=== PATIENT | male | born 1965 | race Caucasian/White ===

== ENCOUNTER → 2021-02-13 | Outpatient (CLI) | payer OTHER ==
[~2021-02-13] MED LIST: ASPIRIN E.C. 8181 MG PO; CORDARONE200 MG/TAB PO; INVANZ INJ1 G/VIAL IV; K-TAB10 PO; KLOR-CON M1010 MEQ PO; LASIX 40MG TABL40 MG PO; LIPITOR 10MG10 MG PO; LIPITOR 40MG TA40 MG PO; NATURAL MAGNES200 MG PO; NEURONTIN100 MG/CAP PO; NEXIUM 40MG40 MG PO; PRILOSEC 20MG20 MG PO; PRINCIPEN500 MG PO; PRINIVIL40 MG PO; PROBIOTIC ACID1 EAC3 PO; SODIUM BICARBO650 MG PO; TOPROL XL 25MG25 MG PO; ZESTRIL2.5 MG PO; ZESTRIL40 MG PO; ZYRTEC 10MG10 MG PO
== END ==
LOC: COL.RAD 09:13
DX: M79.89 Other specified soft tissue disorders (principal)

== ENCOUNTER 2021-03-07 14:36 | Inpatient (IN) | payer OTHER ==
[~2021-03-07] VITALS: Ht 170.2 cm; Wt 96.8 kg
[~2021-03-07 14:36] MED LIST changes: -ASPIRIN E.C. 8181 MG PO; -CORDARONE200 MG/TAB PO; -INVANZ INJ1 G/VIAL IV; -KLOR-CON M1010 MEQ PO; -LIPITOR 40MG TA40 MG PO; -NEURONTIN100 MG/CAP PO; -NEXIUM 40MG40 MG PO; -PRILOSEC 20MG20 MG PO; -PRINCIPEN500 MG PO; -PRINIVIL40 MG PO; -PROBIOTIC ACID1 EAC3 PO; -SODIUM BICARBO650 MG PO; -TOPROL XL 25MG25 MG PO; -ZESTRIL40 MG PO; -ZYRTEC 10MG10 MG PO
[2021-04-07 09:42] LABS: MEAN CELL VOLUME 98 fl (80.0-100.0); MEAN CORPUSCULAR HGB CONC 34 g/dl (33.0-37.0); PLATELET COUNT 194 K/mm3 (130-400); RED BLOOD COUNT 2.95 M/mm3 (4.20-5.60); REDCELL DISTRIBUTION WIDTH-CV 15.4 % (11.5-14.5)
[2021-04-07 09:52] LABS: ALBUMIN 4.3 gm/dL (3.5-5.0); BILIRUBIN,TOTAL 0.3 mg/dL (0.0-1.0); CALCIUM 9.6 mg/dL (8.4-10.2); CREATININE, serum 0.85 (0.66-1.25); TOTAL PROTEIN 7.2 gm/dL (6.4-8.2)
[2021-04-07 10:04] LABS: HEMATOCRIT 28.9 % (42.0-52.0); HEMOGLOBIN 9.9 g/dl (13.5-18.0); MEAN CORPUSCULAR HEMOGLOBIN 34 pg (27.0-31.0)
[2021-04-07 10:14] LABS: BAND 1 % (0-10); EOSINOPHIL 4 % (0-4); LYMPHOCYTE 31 % (20.0-51.0); METAMYELOCYTE 1 % (0-0); NEUTROPHILS 55 % (42.0-75.2); PLATELET ESTIMATE NORMAL (NORMAL)
[2021-04-08] VITALS (231 sets, daily range): BP systolic 111–137; BP diastolic 65–89; PULSE 76–101; TEMP 96.9–98.9; O2SAT 86–100
--- NOTE | 2021-04-08 06:00 | NUR ---
Patient ambulate to bay 7 with steady gait and tolerated activity well. Vital signs obtained. Heart regular. Bowel sounds audible. Lungs audible wheeze on inhalation. IV started in left hand with 2 attempts. brought to bedside to be with patient until surgery. Lab came collected samples for a type and cross when IV was started.
[2021-04-08] MEDS ORDERED: PRILOSEC 20MG20 MG PO ×2 (06:55)
[2021-04-08] MEDS ORDERED: ZYRTEC 10MG10 MG PO (06:57)
[2021-04-08] MEDS ORDERED: KLOR-CON M1010 MEQ PO ×2 (07:00)
[2021-04-08 15:00] LABS: MEAN CORPUSCULAR HGB CONC 33 g/dl (33.0-37.0); MEAN PLATELET VOLUME 10.2 fl (7.4-10.4); PLATELET COUNT 201 K/mm3 (130-400); RED BLOOD COUNT 2.57 M/mm3 (4.20-5.60); REDCELL DISTRIBUTION WIDTH-CV 15.8 % (11.5-14.5)
[2021-04-08 15:05] LABS: HEMATOCRIT 26.8 % (42.0-52.0); HEMOGLOBIN 8.8 g/dl (13.5-18.0); MEAN CELL VOLUME 104 fl (80.0-100.0); MEAN CORPUSCULAR HEMOGLOBIN 34 pg (27.0-31.0)
--- NOTE | 2021-04-08 15:18 | NUR ---
RECEIVED REPORT FROM GOKLU FRANCIS IN OR. AWAITING ARRIVAL OF PT TO ICU 4.
[2021-04-08 15:20] LABS: CALCIUM 8.2 mg/dL (8.4-10.2); CREATININE, serum 1.07 (0.66-1.25); POTASSIUM 4.6 mmol/L (3.4-5.0)
--- NOTE | 2021-04-08 15:41 | NUR ---
PT ARRIVES TO ICU 4 VIA BED. ASSISTED TO ICU BED. PLACED ON BEDSIDE CONTINUOUS MONITOR. PER REPORT, PT MID ABD DRESSING SHADOWING WAS NOTED BY PHYSCIAN PRIOR TO TRANSFER TO ICU. WILL MONITOR CLOSELY. VSS. CALL LIGHT WITHIN REACH. PT ON 2L VIA NC. AND SON BROUGHT TO BEDSIDE.
[2021-04-08 15:43] LABS: BAND 9 % (0-10); LYMPHOCYTE 3 % (20.0-51.0); NEUTROPHILS 82 % (42.0-75.2)
[2021-04-08 15:44] LABS: ANISOCYTOSIS 1+; HYPOCHROMIA 1+; PLATELET ESTIMATE NORMAL (NORMAL)
--- NOTE | 2021-04-08 21:50 | NUR ---
Assessment complete and charted. Urostomy flushed with 3ml as ordered. Reports mild pain. Given scheduled tylenol. Patient dressings to ABD have drainage present. No changes from previous assessment on drainage. MEET drain emptied. Denies other needs. Call light in reach.
[2021-04-09] VITALS (446 sets, daily range): BP systolic 115–149; BP diastolic 73–96; PULSE 90–135; TEMP 97.6–98.7; O2SAT 90–100
--- NOTE | 2021-04-09 00:50 | NUR ---
Assessment complete and charted. Denies needs at this time. Call light in reach.
--- NOTE | 2021-04-09 04:48 | NUR ---
Assessment complete and charted. Denies needs. Call light in reach.
[2021-04-09 05:19] LABS: BASO % 0.1 % (0.0-2.0); GRAN # 12.1 (1.4-6.5); LYMPH # 1.1 (1.2-3.4); LYMPH % 7.4 % (20.0-51.0); MEAN CELL VOLUME 102 fl (80.0-100.0); MEAN CORPUSCULAR HGB CONC 33 g/dl (33.0-37.0); MEAN PLATELET VOLUME 10.2 fl (7.4-10.4); MONO # 1.3 (0.1-0.6); MONO % 8.9 % (1.7-9.3); PLATELET COUNT 172 K/mm3 (130-400); RED BLOOD COUNT 2.25 M/mm3 (4.20-5.60); REDCELL DISTRIBUTION WIDTH-CV 15.7 % (11.5-14.5)
[2021-04-09 05:26] LABS: HEMATOCRIT 22.9 % (42.0-52.0); HEMOGLOBIN 7.5 g/dl (13.5-18.0); MEAN CORPUSCULAR HEMOGLOBIN 33 pg (27.0-31.0)
[2021-04-09 05:27] LABS: CALCIUM 8.7 mg/dL (8.4-10.2); CREATININE, serum 0.98 (0.66-1.25); POTASSIUM 4.7 mmol/L (3.4-5.0)
[2021-04-09 05:37] LABS: MAGNESIUM 1.4 mg/dL (1.6-2.3)
--- NOTE | 2021-04-09 06:44 | NUR ---
Patient had uneventful night. X1 unit of PRBC started this AM per verbal order from Dr. Brown. Resting in bed this AM. Call light in reach.
--- NOTE | 2021-04-09 07:00 | NUR ---
RECEIVED REPORT FROM GOKUL ROONEY. PT SITTING UP IN BED ON RA. VSS. CALL LIGHT WITHIN REACH. FC PATENT AND DRAINING TO GRAVITY. NOTED PRBC INFUSING.
--- NOTE | 2021-04-09 07:13 | NUR ---
Report given to Jalil HODGSON
--- NOTE | 2021-04-09 09:27 | NUR ---
MIO met with the patient to discuss discharge plan. The patient lives in [place] with his , Heide (ph#[phone]). He reports independence with ADLs and does not have any DME. The patient's PCP is Dr. Jony Medrano and he receives his medications from [facility]. He reports no difficulties obtaining his meds. The patient does not have a DPOA-HC, but he was interested in obtaining a form. MIO provided. The patient plans to return home with his upon discharge. No additional needs at this time. *Discharge plan: home with *
--- NOTE | 2021-04-09 11:39 | NUR ---
First visit from the plating engineer. Chaplain aceves for patient outside their door.
[2021-04-09 12:11] LABS: HEMATOCRIT 26.9 % (42.0-52.0); HEMOGLOBIN 9.1 g/dl (13.5-18.0)
--- NOTE | 2021-04-09 16:21 | NUR ---
PT STATES HE FEELS LIKE HE IS GOING TO THROW UP. COOL WASH CLOTH PROVIDED AND AIR ON. PT ASSISTED TO EDGE OF CHAIR TO LEAN OVER TRASH CAN WHILE HE DRY HEAVES. ASSISTED WITH PILLOW TO HOLD PRESSURE OVER HIS BELLY WHILE HE DOES. HR NOTED HITS 132. DR GIBSON NOTIFIED OF INCIDENT. STATES CAN GIVE PHENERGAN. SOON RN WALKS BACK IN THE ROOM, PT STATES HE FEELS BETTER AND HAD PASSED GAS AND BURBED. PROVIDER STATES CAN GIVE HIM THE PHENERGAN X1 DOSE LATER IF HE NEEDS IT.
--- NOTE | 2021-04-09 17:32 | NUR ---
PER MT, PT'S HR IS NOW AFIB 130-150. UPON ENTERING ROOM, PT STATES HE DOES NOT EVEN NOTICE. BP 169/96. NOTIFIED DR CALDERON. PROVIDER STATES TO CONSULT DR ANTHONY.
--- NOTE | 2021-04-09 17:40 | NUR ---
NOTIFY DR ANTHONY OF AFIB INCIDENT AND BP. NEW ORDERS RECEIEVED. SEE MAR. SEE IV GTT TITRATIONS.
--- NOTE | 2021-04-09 18:15 | NUR ---
UPDATED DR GIBSON OF WHAT DR ANTHONY ORDERED AND ASKED IF PT CAN BE IMCU STTAUS R/T NOW ON CARDIZEM GTT, RECEIVED NEW ORDER.
--- NOTE | 2021-04-09 19:20 | NUR ---
Patient coverted to sinus tach at this time. 90-100s
--- NOTE | 2021-04-09 20:00 | NUR ---
Assessment complete and charted. Denies needs. MEET drain emptied. Call light in reach.
[2021-04-10] VITALS (356 sets, daily range): BP systolic 108–131; BP diastolic 58–81; PULSE 83–104; TEMP 97.7–98.9; O2SAT 94–100
--- NOTE | 2021-04-10 02:11 | NUR ---
Patient provided with PRN tramadol for 5/10 ABD pain at this time. Denies other needs. Call light in reach.
--- NOTE | 2021-04-10 05:50 | NUR ---
Patient had uneventful night. Resting in bed this AM. Call light in reach.
--- NOTE | 2021-04-10 07:20 | NUR ---
Dr. Flores at bedside to see patient. Irrigated albarran catheter and lakisha-bladder. Lap sites assessed. Aware of drainage from midline incision. Will continue to monitor.
--- NOTE | 2021-04-10 07:33 | NUR ---
Report given to GOKUL Rucker
[2021-04-10 07:48] LABS: MEAN CELL VOLUME 100 fl (80.0-100.0); MEAN CORPUSCULAR HGB CONC 33 g/dl (33.0-37.0); MEAN PLATELET VOLUME 10.5 fl (7.4-10.4); PLATELET COUNT 151 K/mm3 (130-400); RED BLOOD COUNT 2.32 M/mm3 (4.20-5.60); REDCELL DISTRIBUTION WIDTH-CV 16.7 % (11.5-14.5)
[2021-04-10 07:49] LABS: HEMATOCRIT 23.1 % (42.0-52.0); HEMOGLOBIN 7.6 g/dl (13.5-18.0); MEAN CORPUSCULAR HEMOGLOBIN 33 pg (27.0-31.0)
[2021-04-10 07:59] LABS: CALCIUM 8.7 mg/dL (8.4-10.2); CREATININE, serum 0.97 (0.66-1.25); POTASSIUM 3.9 mmol/L (3.4-5.0)
[2021-04-10 08:16] LABS: MAGNESIUM 1.5 mg/dL (1.6-2.3)
--- NOTE | 2021-04-10 14:01 | NUR ---
Notified Kelsie from Dr. Sahu office that patient had gone back into [facility]. Was running 120's but currently 80's-90's. Received his first dose of Sotalol. No new orders received.
--- NOTE | 2021-04-10 15:00 | NUR ---
Transfered from unit to surgical floor via wheelchair. Patient alert and oriented and in stable condition upon transfer. Notified nursing staff that patient had arrived into his room in 329. also updated and notified of room change.
--- NOTE | 2021-04-10 16:00 | NUR ---
Pt recently arrived to the floor from ICU. He is alert and oriented with moderate pain complaints. He states it is tolerable and denies wanting any additional pain medication other than the tylenol. Small amount of drainage on his abd dressing. Per report this has been normal for him. Dressing was recently changed by ICU. Escobedo catheter and suprapubic both to dependent drainage. Minimal output in the bags at this time. SCDs on bilaterally. IV with fluids infusing to his left hand.
[2021-04-10] MEDS ORDERED: ZESTRIL40 MG PO (17:08)
--- NOTE | 2021-04-10 18:56 | NUR ---
Drainage noted on the abd dressing/suprapubic. Dressing changed and new ostomy appliance applied. Wafer is placed at the abd fold and it is hard to get a good seal. Pt having some pain but reports that he wants to wait until bedtime to take anything for it.
--- NOTE | 2021-04-11 00:05 | NUR ---
PATIENT RESTING IN BED. TYLENOL AND TRAMADOL GIVEN FOR PAIN WITH GOOD EFFECT. DUO CAR FLUSH. MEET DRAIN INTACT. MID ABDOMINAL INCISION WITH JAMEEL INTACT WITH MODERATE AMOUNT OF DRAINAGE. NEW DRESSING APPLIED. PATIENT AMBULATES TO BR WITH STEADY GAIT. BM X2. WILL CONTINUE TO MONITOR.
[2021-04-11 04:42] VITALS: BP 103/70; PULSE 67; TEMP 98.5
[2021-04-11 06:47] LABS: CALCIUM 8.6 mg/dL (8.4-10.2); CREATININE, serum 0.84 (0.66-1.25); MAGNESIUM 1.6 mg/dL (1.6-2.3); POTASSIUM 3.7 mmol/L (3.4-5.0)
[2021-04-11 06:54] LABS: BASO % 0.2 % (0.0-2.0); EOS # 0.2 (0.0-0.7); EOS % 1.2 % (0-4.0); GRAN # 9.3 (1.4-6.5); GRAN % 77.2 % (42.2-75.2); LYMPH # 1.3 (1.2-3.4); LYMPH % 10.5 % (20.0-51.0); MEAN CELL VOLUME 100 fl (80.0-100.0); MEAN CORPUSCULAR HGB CONC 33 g/dl (33.0-37.0); MEAN PLATELET VOLUME 10.9 fl (7.4-10.4); MONO # 1.2 (0.1-0.6); MONO % 10.2 % (1.7-9.3); PLATELET COUNT 174 K/mm3 (130-400); RED BLOOD COUNT 2.35 M/mm3 (4.20-5.60)
[2021-04-11 06:56] LABS: HEMATOCRIT 23.5 % (42.0-52.0); HEMOGLOBIN 7.7 g/dl (13.5-18.0); MEAN CORPUSCULAR HEMOGLOBIN 33 pg (27.0-31.0)
[2021-04-11 08:25] VITALS: BP 127/76; PULSE 86; TEMP 98.4
--- NOTE | 2021-04-11 10:24 | NUR ---
Several visit attempts; Patient sleeping, Marketing Programs Specialist left prayer card with Marketing Programs Specialist's name wishing him God's blessings and the availability of spiritual care at our hospital.
--- NOTE | 2021-04-11 10:30 | NUR ---
The patient was tranferred to surgical floor from the ICU. Copyist met with the patient to revisit the discharge plan. The patient is independent and plans to return home with his , Heide. *Discharge disposition: Home with spouse, Heide.
[2021-04-11 11:39] LABS: CLOSTRIDIUM DIFF A/B NEG; CLOSTRIDIUM DIFF A/B INTERP No C.diff present
[2021-04-11 11:58] VITALS: BP 123/66; PULSE 79; TEMP 98
[2021-04-11 17:39] VITALS: BP 127/73; PULSE 87; TEMP 97.8
--- NOTE | 2021-04-11 17:58 | NUR ---
Patient has done well today. rounded this am and plan of care was reviewed. Patient has been encouraged to slowly increase po intake, he has had a few bites of toast, small amount of chicken noodle soup & an ensure shake. He has denied nausea today, but no appetite. Abdomen is distended, but soft. He reports passing flatus. Iv to Int. Patient has been up and down to the bathroom today. Cdiff negative. stool remains loose. Seal around suprapubic cath & stent has been hard to maintain today. New urostomy appliance changed muliple times, patient cleaned up as needed. Extensive albarran care provided today. He is getting scrotal edema & brusing. Midline incision irina intact & lap site irina intact. Midline gauze dressing changed as needed today. Patient ureteral stent were flushed with 3mls per orders & suprapubic & albarran flushed as ordered today as well. MEET drain to compression, output has decreased. Scds used throughout day & patient also had his lovenox shot as ordered. Tele has been NSR today. Ekg stable to give Sotolol today. Eras protocol followed. Tyelnol & neurotin given. Ultram for break through pain as well as ice pack to help as well. His visited this afternoon. Will report off to nightnurse
--- NOTE | 2021-04-11 19:01 | NUR ---
Update called to . Made him aware of increased distal midline incision drainage. Blood noted. He complains of being bloated. Denies nausea. Abdomen does appear more distended. Lovenox held per orders. Am labs are already ordered. Gauze to midline. Philippe to compression. aware of very minimal output from albarran from penis & unable to return fluid flushed. Suprapubic output adequate, but unable to have strict I&O due to leaking. Donna to resume cares this evning.
[2021-04-11 20:27] VITALS: BP 138/69; PULSE 94; TEMP 98.1
--- NOTE | 2021-04-11 23:35 | NUR ---
ABD DRSG INTACT WITH SEROUS DRAINAGE BUT NOT SATURATED. WILL CONTINUE TO MONITOR.
[2021-04-12] VITALS (17 sets, daily range): BP systolic 106–144; BP diastolic 65–82; PULSE 66–82; TEMP 97.5–98.6
--- NOTE | 2021-04-12 01:37 | NUR ---
ABD DRSG INTACT WITH SEROUS DRG BUT NOT SATURATED YET. WILL CONTINUE TO MONITOR. HAD 25CC FROM S/P CATH. VERY LITTLE FROM FLOEY. OFFERED ICE BAG FOR SWOLLEN SCROTUM- DECLINED AT THIS TIME.
--- NOTE | 2021-04-12 02:45 | NUR ---
CHANGED ABD PRASANNAG. MOD AMT SEROUS SANGUINOUS LEAKAGE AT DISTAL END.
--- NOTE | 2021-04-12 06:31 | NUR ---
NIC ADAMS HAS SEROUS SANGUINOUS DRG. NO LEAKAGE. WILL CONTINUE TO MONITOR
[2021-04-12 07:15] LABS: BASO % 0.3 % (0.0-2.0); EOS # 0.2 (0.0-0.7); EOS % 1.7 % (0-4.0); GRAN # 7.4 (1.4-6.5); GRAN % 70.8 % (42.2-75.2); LYMPH # 1.4 (1.2-3.4); LYMPH % 13.7 % (20.0-51.0); MEAN CELL VOLUME 100 fl (80.0-100.0); MEAN CORPUSCULAR HGB CONC 33 g/dl (33.0-37.0); MEAN PLATELET VOLUME 10.7 fl (7.4-10.4); MONO # 1.3 (0.1-0.6); MONO % 12.5 % (1.7-9.3); PLATELET COUNT 198 K/mm3 (130-400); RED BLOOD COUNT 2.39 M/mm3 (4.20-5.60); REDCELL DISTRIBUTION WIDTH-CV 15.2 % (11.5-14.5)
[2021-04-12 07:17] LABS: HEMATOCRIT 23.8 % (42.0-52.0); HEMOGLOBIN 7.8 g/dl (13.5-18.0); MEAN CORPUSCULAR HEMOGLOBIN 33 pg (27.0-31.0)
[2021-04-12 07:23] LABS: CALCIUM 8.7 mg/dL (8.4-10.2); CREATININE, serum 0.92 (0.66-1.25); MAGNESIUM 1.7 mg/dL (1.6-2.3); POTASSIUM 3.2 mmol/L (3.4-5.0)
--- NOTE | 2021-04-12 08:45 | NUR ---
Patient up to the bathroom this am. Spoke to about K+ Level of 3.2-Inially ordered IV K+patient was unable to tolorate in Iv. Po orders obtained. Ultram for pain. Patient did want to try Egg for breakfast, ordered. him one. Patient midline dressing saturated. New dressing applied. Scds. Int. Will monitor.
--- NOTE | 2021-04-12 10:30 | NUR ---
rounded. Patient seen & plan of care reviewed. Stat Ct scan ordered. Patient ureteral stents were removed by . Was painful for patient. Doctor Ofe also flushed his foleys. Midline continues to drain. Redressed with Gauze & paper tape. Patient skin starting to become irritared. Patient made NPO for potential surgery. Suprapubic albarran to bag & secured with stat lock. Philippe drain to comression. Albarran from penis with minimal output.
--- NOTE | 2021-04-12 11:30 | NUR ---
rounded & plan of care reviewed. Patient LR to gravity. Consent obtained. Patient taken down to Pacu for waiting Beena Pacu nurse to monitor patient. Patient is a little anxious/nervous.
--- NOTE | 2021-04-12 14:00 | NUR ---
Patient received post op from [facility]. Patient post op vitals stable. Abdominal dressing intact with abdominal binder on. Philippe drain remains to compression. Pinned to gown. Escobedo & suprapubic to DD. Ice water provided. Instructed patient to take slowly. Will closely monitor.
--- NOTE | 2021-04-12 15:30 | NUR ---
Patient unit of blood started per orders. Blood protocol followed. Verified with Meghan Gagnon. Patient vitals have been stable post op. Patient reports overall feeling much better.
--- NOTE | 2021-04-12 19:05 | NUR ---
Patient blood transfusion completed. He tolerated well. Vitals remain stable. Patient flushed his own albarran caths with 30mls. Mucus irrigated. Philippe drain to compression, serous output. Abdominal binder on above his suprapubic cath. Midline dressing remains clean dry & intact. Iv to Int. Patient reports overall feeling much better & ready to rest tonight. Report to media buyer nurse
--- NOTE | 2021-04-12 19:44 | NUR ---
PT NOT AGREEABLE TO MONOSTAT VAG CREAM. NOTIFIED ZAIRA SMITH. NEW ORDER.
--- NOTE | 2021-04-12 20:00 | NUR ---
PT UP TO BR WITH SBA. HAVING LOOSE LIQ STOOL LIGHT BROWN SEVERAL TIMES. SUPRAPUBIC CATHETER DRAINING YELLOW URINE WITH BENITEZ EXUDATE IN TUBING. CAR HAS SMALL AMT OF YELLOW WITH PINK TINGED. SEE I&O. MEET DRAINING PINK/YELLOW RETURN. NIC MIMSGS CDI. ABD BINDER IN PLACE. SEE MAR FOR PAIN MED GIVEN.
[2021-04-13 00:52] VITALS: BP 99/70; PULSE 67; TEMP 97.4
--- NOTE | 2021-04-13 03:21 | NUR ---
PT SLEEPING SOUNDLY WITH CPAP ON.
[2021-04-13 03:41] VITALS: BP 101/74; PULSE 69; TEMP 97.6
--- NOTE | 2021-04-13 04:11 | NUR ---
UP TO BR .HAD ANOTHER LOOSE STOOL/
[2021-04-13 06:28] LABS: MEAN CELL VOLUME 96 fl (80.0-100.0); MEAN CORPUSCULAR HGB CONC 33 g/dl (33.0-37.0); MEAN PLATELET VOLUME 10.1 fl (7.4-10.4); PLATELET COUNT 201 K/mm3 (130-400); RED BLOOD COUNT 2.56 M/mm3 (4.20-5.60); REDCELL DISTRIBUTION WIDTH-CV 17.2 % (11.5-14.5)
[2021-04-13 06:36] LABS: CALCIUM 8.7 mg/dL (8.4-10.2); CREATININE, serum 1.36 (0.66-1.25); MAGNESIUM 1.7 mg/dL (1.6-2.3); POTASSIUM 3.7 mmol/L (3.4-5.0)
[2021-04-13 06:38] LABS: HEMATOCRIT 24.6 % (42.0-52.0); HEMOGLOBIN 8.2 g/dl (13.5-18.0); MEAN CORPUSCULAR HEMOGLOBIN 32 pg (27.0-31.0)
[2021-04-13 07:28] LABS: ANISOCYTOSIS 1+; BAND 10 % (0-10); LYMPHOCYTE 3 % (20.0-51.0); NEUTROPHILS 81 % (42.0-75.2); PLATELET ESTIMATE NORMAL (NORMAL)
--- NOTE | 2021-04-13 08:31 | NUR ---
Pt overall doing well. He is hoping to get to advance his diet today as he reports feeling hungry. Dressings are CDI at this time. Escobedo and suprapubic to dependent drainage. MEET to bulb suction. Did get him some chicken broth and red jello. No other needs verbalized, will continue to monitor
[2021-04-13 08:50] VITALS: BP 116/66; PULSE 74; TEMP 98.4
--- NOTE | 2021-04-13 12:00 | NUR ---
Dr Flores in recently. New orders wrote. Pt did flush both catheter earlier and did well with no prompting. Lunch ordered for him at this time. He is having loose stool.
[2021-04-13 12:38] VITALS: BP 109/52; PULSE 86; TEMP 98.3
--- NOTE | 2021-04-13 16:00 | NUR ---
Pt ate lunch but reports that he feels as if he ate too much too fast. Pt reports his stomach feels tight. Bowel sounds are active. Pt stated that he does pass gas when he sits on the toilet. Dressing removed from abd. Incisions all well approximated with irina intact. Called MEET creatinine results to Dr Flores, order to remove MEET. Meet removed at this time. Gauze applied to drain site, airstrip applied to midline and drain sponge around suprapubic. PRN pain medication given
[2021-04-13 17:27] VITALS: BP 112/55; PULSE 106; TEMP 100.4
--- NOTE | 2021-04-13 18:01 | NUR ---
Pt has been up walking in the halls. Tolerated well with no increase in pain.
--- NOTE | 2021-04-13 19:30 | NUR ---
UP AMB IN [place]. TOLERATED WELL. PAIN LEVEL 3/10.
[2021-04-13 20:15] VITALS: BP 90/50; PULSE 86; TEMP 98.3
--- NOTE | 2021-04-13 21:00 | NUR ---
CHANGE OLD MEET SITE D/T SEROUS SANG DRG WITH GAUZE. PT AMB TO BR INDEPENDENTLY. PAIN CONTROLLED AT THIS TIME.
[2021-04-14] VITALS (10 sets, daily range): BP systolic 90–120; BP diastolic 51–63; PULSE 81–134; TEMP 97.7–101.2
--- NOTE | 2021-04-14 03:40 | NUR ---
TELE NOTIFIED THIS NURSE REGARDING HR INCREASED TO 140'S SUSTAINED. EKG ORDERED. PT ASYMPTOMATIC. HAD BEEN SLEEPING WITH CPAP.
--- NOTE | 2021-04-14 04:15 | NUR ---
NOTIFIED DR SPAULDING REGARDING EKG CHANGE TO AFIB HR 140'S. NEW ORDER TO WATCH AND INCREASE SOTOLOL. SEE ORDER. PT REMAINS AYMPTOMATIC.
--- NOTE | 2021-04-14 04:39 | NUR ---
CHANGED ABD DRSG'S. MIDLINE HAS SM AMT OF SEROUS DRG. MEET DRAINING SEROUS- SM AMT. S/P CATH SITE HAS SM AMT TANNISH EXUDATE NOTED. PAIN CONTROLLED BY SCHEDULED TYLENOL. PT HAS WORE CPAP THROUGH THE NIGHT. PT REPORTED HAS HAD X4 DIARRHEA EPISODES TONIGHT.
--- NOTE | 2021-04-14 06:58 | NUR ---
CALLED RT-UNABLE TO SEE EKG FROM THIS AM. BRENT RT REPORTS QTC INTERVAL WAS 490. WILL GIVEN INCREASED DOSE OF SOTOLOL NOW FOR ELEVATED HR
[2021-04-14 07:00] LABS: HEMATOCRIT 23.7 % (42.0-52.0); HEMOGLOBIN 7.8 g/dl (13.5-18.0); MEAN CELL VOLUME 96 fl (80.0-100.0); MEAN CORPUSCULAR HEMOGLOBIN 31 pg (27.0-31.0); MEAN CORPUSCULAR HGB CONC 33 g/dl (33.0-37.0); PLATELET COUNT 198 K/mm3 (130-400); RED BLOOD COUNT 2.48 M/mm3 (4.20-5.60); REDCELL DISTRIBUTION WIDTH-CV 17.2 % (11.5-14.5)
[2021-04-14 07:01] LABS: CALCIUM 8.5 mg/dL (8.4-10.2); CREATININE, serum 2.31 (0.66-1.25); MAGNESIUM 1.5 mg/dL (1.6-2.3)
--- NOTE | 2021-04-14 07:39 | NUR ---
Patient lying in bed. He was sitting up at edge of bed and had breakfast this am. I did speak with clerk television production this am and asked them to keep close eye on heart rate. Heart rate tach & irregular. Patient denies feeling SOB. He denies nausea. Patient states he did have a headache earlier this am and also felt clammy, but has since resolved and he now feel chilly. Warm blanket provided. rounded this am & aware of afib, leaving this up to cardilogy, will call him today with any updates. Will continue to closely monitor.
--- NOTE | 2021-04-14 07:50 | NUR ---
PAGED CARDIOLOGY SPOKE WITH LISBETH WITH DR. SPAULDING ABOUT PATIENT CONTINUED ELEVATION IN HEART RATE. ALSO LET HER KNOW OF ELECTROLYES OUT OF RANGE.
[2021-04-14 07:54] LABS: ANISOCYTOSIS 1+; BAND 31 % (0-10); LYMPHOCYTE 5 % (20.0-51.0); NEUTROPHILS 56 % (42.0-75.2); PLATELET ESTIMATE NORMAL (NORMAL)
--- NOTE | 2021-04-14 07:57 | NUR ---
Patient sleeping soundly at this time. On tele heart rate remains irregular. Awaitng return phone calls.
--- NOTE | 2021-04-14 08:23 | NUR ---
CONSULT GIVEN TO JOSSY BEAL WITH . US CALLED TO [facility] TO LET HER KNOW OF US ORDERS.
--- NOTE | 2021-04-14 09:17 | NUR ---
COMMUNITY SUPPORT SPECIALIST CALLED PATIENT CONVERTED TO NSR. MADE CARDIOLOGY AWARE & AWARE. JOSSY ROUNDED. PATIENT SET UP FOR CDIF SAMPLE PER ORDERS. WILL CONTINUE TO CLOSELY MONITOR.
--- NOTE | 2021-04-14 10:17 | NUR ---
NOTIFED & CLARIFIED ORDER. NO ORDERS FOR ANCEF AT THIS TIME.
--- NOTE | 2021-04-14 13:35 | NUR ---
Patient had a fever spike, called Dr. Flores. Orders obtained. Ua & blood cultures obtained & rocephin started per orders after cultures. Hospitalist made aware of consult. Chest xray ordered & called to make radiology aware. Patient was assisted with hygiene. extensive albarran cares provided. bed bath & fresh linens. Encourged more po intake than just water. He was not interest in gatorade or ensure. His did bring him a milkshake. Patient reminded to use his IS. New fresh & clean abdominal binder on after new midline gauze dressing applied to midline irina. irina intact, no drainage. some reddness noted. Continue to closely monitor patient
[2021-04-14 15:35] LABS: COLLECTION METHOD IN
[2021-04-14 15:41] LABS: PH 8 (5-8); SQUAMOUS EPITHELIAL 0-2 /hpf; URINE APPEARANCE Cloudy; URINE BACTERIA Rare /hpf; URINE BILIRUBIN Negative (NEGATIVE); URINE BLOOD 2+ (NEGATIVE); URINE COLOR Yellow; URINE GLUCOSE Negative (NEGATIVE); URINE KETONE Negative (NEGATIVE); URINE LEUKOCYTE ESTERASE 3+ (NEGATIVE); URINE NITRATE Negative (NEGATIVE); URINE PROTEIN(semi-quant) 2+ (NEGATIVE); URINE UROBILINOGEN Negative (NEGATIVE); URINE WBC 20-50 /hpf
--- NOTE | 2021-04-14 18:35 | NUR ---
Patient up to the bathroom, continues to have loose/watery stools. Another dose of immodium given. Tele called patient back into afib with RVR around 5pm. Hospitalist team made aware EKG ordered. They also wanted to make sure patient fever was treated. I spoke to & he ordered to give evening dose of sotolol now and monitor. Patient was treated with tylenol for fever, one gram. Fever has broke temp 99.1. Patient provided with fresh linens and room air turned down. He broke out in sweat. K+ given with grape juice per orders for k+ protocol. Mg was replaced. Flagyl given & ivf per orders. I did verify with IVF NS @ 100ml/hr. Patient had have one chicken strip for dinner, he is skeptical to eat because of the loose stool. Abdominal binder on. midline incisions remains CDI. Escobedo to DD with minimal output. Suprapubic with adequqate mucusy urine output. Bedside report to Deborah HODGSON
--- NOTE | 2021-04-14 20:11 | NUR ---
Update called to . Order obtained. Made him aware of hospitalist new orders. As well as patient returning to afib rvr & orders obtained.
--- NOTE | 2021-04-14 22:43 | NUR ---
Patient assessed around 2039. Alert and oriented x 4, and able to make needs known. Denies having pain and discomfort at this time. Peripheral IV to left hand with fluids running per orders. Denies SOB and dyspnea. LS CTA in upper lobes, diminished in lower. Respirations even and unlabored. HRI, tachycarida. Telemetry in place, continues to be in A-fib. Called placed to Dr. Hough. Stated if patients HR sustains in the 130s, to start Diltiazem 30 mg po Q4H PRN. HR has been 110s-120s. Capillary refill less than 3 seconds. Non-tenting sking turgor. BS hyperactive x 4. Continues to have watery, loose stools. Given another Imodium. Abdominal binder in place. Gauze to midline surgical site is CDI. Ecru to lap sites with edges well approximated. Suprapubic and Indwelling albarran catheter patent. Irrigated both per orders, but not able to pull back on indwelling albarran. Scrotal edema continues. No edema. Patient voices no questions, needs, or concerns at this time. Resting in bed with call light within reach.
--- NOTE | 2021-04-14 23:35 | NUR ---
Patient's HR has been staying 120s-130s. Given PRN Cardizem PO per orders around 2320.
[2021-04-15] VITALS (332 sets, daily range): BP systolic 91–153; BP diastolic 56–90; PULSE 81–127; TEMP 97.4–100.9; O2SAT 51–100
--- NOTE | 2021-04-15 04:55 | NUR ---
Patient has denied having pain and discomfort this shift. Has voiced no questions, needs, or concerns. IV fluids continue per orders. Patient has been having urinary output through suprapubic catheter and indwelling albarran catheter. Continues to have watery stools, and received PRN Imodium as requested. HR has been in the 90s-110s since receiving PRN Diltiazem, A-fib. HR does get up to 120-130s when walking, but decreases when back in bed. Voices no questions, needs, or concerns at this time. Resting in bed with call light within reach.
--- NOTE | 2021-04-15 06:10 | NUR ---
Lab called and stated that patient had positive blood cultures. Called MINGO Jimenez and updated. New orders received to D/C flagyl, and to start Merrem. ABX started at this time. Patient also has an order to call infectious disease consult. Attempted to call at this time with no answer.
--- NOTE | 2021-04-15 06:28 | NUR ---
Dr. Shepard called and updated on infectious disease consult.
[2021-04-15 06:38] LABS: COLLECTION METHOD IN
[2021-04-15 06:40] LABS: MEAN CELL VOLUME 96 fl (80.0-100.0); MEAN CORPUSCULAR HGB CONC 34 g/dl (33.0-37.0); PLATELET COUNT 170 K/mm3 (130-400); RED BLOOD COUNT 2.12 M/mm3 (4.20-5.60); REDCELL DISTRIBUTION WIDTH-CV 17.5 % (11.5-14.5)
[2021-04-15 06:45] LABS: HEMATOCRIT 20.4 % (42.0-52.0); HEMOGLOBIN 6.9 g/dl (13.5-18.0); MEAN CORPUSCULAR HEMOGLOBIN 33 pg (27.0-31.0)
[2021-04-15 06:51] LABS: CREATININE, serum 2.85 (0.66-1.25)
[2021-04-15 06:52] LABS: POTASSIUM 2.9 mmol/L (3.4-5.0)
--- NOTE | 2021-04-15 07:06 | NUR ---
Called Hemoglobin result to Dr. Moss. Stated he will be in to see patient this morning.
[2021-04-15 07:08] LABS: MUCOUS Present /lpf; PH 8 (5-8); SQUAMOUS EPITHELIAL None Seen /hpf; URINE APPEARANCE Turbid; URINE BACTERIA Moderate /hpf; URINE BILIRUBIN Negative (NEGATIVE); URINE BLOOD 2+ (NEGATIVE); URINE COLOR Amber; URINE GLUCOSE Negative (NEGATIVE); URINE KETONE Negative (NEGATIVE); URINE LEUKOCYTE ESTERASE 2+ (NEGATIVE); URINE NITRATE Negative (NEGATIVE); URINE PROTEIN(semi-quant) 2+ (NEGATIVE); URINE RBC >50 /hpf; URINE UROBILINOGEN Negative (NEGATIVE); URINE WBC >50 /hpf
[2021-04-15 07:29] LABS: BAND 20 % (0-10); LYMPHOCYTE 8 % (20.0-51.0); NEUTROPHILS 64 % (42.0-75.2); PLATELET ESTIMATE NORMAL (NORMAL)
--- NOTE | 2021-04-15 08:00 | NUR ---
PATIENT IS A&O. NOTED SOFT B/P OF 91/58 WITH HR OF 107. PATIENT IS IN A-FIB ON TELE. ALL OTHER VSS. PATIENT GETTING SOTOLOL FOR NEW ON-SET A-FIB, EKG TAKEN THIS AM. NO C/O CHEST PAIN. PATIENT DOES REPORT SOME MILD DYSPNEA WITH EXERTION. NOTED A&P WHEEZE WITH DEMINISHED BASES. IV FLUIDS INFUSING INTO LEFT FORARM VIA PUMP. NEPHROLOGY CONCERNED ABOUT FLUID OVERLOAD, IV FLUIDS TURNED DOWN. AM HGB WAS 6.9 AND PATIENT WILL GET 2 UNITS OF BLOOD TODAY. ALSO NOTED AM K+ OF 2.9, WILL REPLACE PER PROTOCOL. PATIENT HAS HAD LOTS OF LOOSE STOOLS. C-DIFF NEGATIVE. BLOOD CULTURES POSITIVE FOR ENTEROBACTERIA CLOACAE. PATIENT REPORTS PREVIOUS FEVERS BUT IS CURRENTLY AFEBRILE. INDWELLING CAR TO DD WITH NO URINE NOTED IN CAR BAG. SUPERPUBIC CAR TO DD WITH MOD AMOUNTS OF BRET COLORED URINE WITH WHITE CLOTS. IRRIGATED BOTH CAR'S WITH 30CC OF IRRIGANT, PATIENT WAS ABLE TO DO THIS MOSTLY ON HIS OWN WITH NURSING GUIDENCE. AM MEDS GIVEN. HEAD TO TOE ASSESSMENT COMPLETE. NO OTHER NEEDS AT THIS TIME. WILL MONITOR.
--- NOTE | 2021-04-15 08:00 | NUR ---
AT BEDSIDE, SEE NEW ORDERS.
--- NOTE | 2021-04-15 09:04 | NUR ---
Tour Actor attended clinical rounds with the team. The patient may possibly be needing IV antibiotics. *Discharge disposition at this time: Home with spouse*
--- NOTE | 2021-04-15 09:15 | NUR ---
AM DOSE OF SOTOLOL WAS PLACED ON HOLD AFTER NURSE SCANNED AM MEDS. CALLED TO CONFIRM. SOTOLOL GIVEN WITH AM MEDS PER . TO ROUND SOON.
--- NOTE | 2021-04-15 09:28 | NUR ---
NOTIFIED OF PICC PLACEMENT PER [facility], NEPHROLOGY OKAY WITH PICC PLACEMENT TODAY.
--- NOTE | 2021-04-15 09:35 | NUR ---
CARDIOLOGY NOW ROUNDING. PATIENT STILL IN A-FIB WITH A RATE IN THE LOW 100'S AT REST. HR INCREASES WITH ACTIVITY. STAT EKG OBTAINED. CARDIOLOGY WILL TALK WITH HOSPITLIAST ABOUT MOVING PATIENT TO ICU TO BE PLACED ON A CARDIAC GTT.
--- NOTE | 2021-04-15 09:40 | NUR ---
TALKED WITH WHO DOES NOT RECOMMEND PICC LINE AT THIS TIME DUE TO POSITIVE BLOOD CULTURES. HE RECOMMENDS CENTRAL LINE TILL BC ARE NEGATIVE AND THEN POSSIBLE PICC PLACEMENT FOR ANTIBIOTIC MANAGEMENT, IF NEEDED. CONSULTED FOR CENTRAL LINE PLACEMENT.
--- NOTE | 2021-04-15 09:58 | NUR ---
SEE TRANSFER ORDERS TO THE ICU. HOUSE NOTIFIED. WAITING ON AN ICU BED.
--- NOTE | 2021-04-15 10:15 | NUR ---
AT BEDSIDE TO PLACE CENTRAL LINE.
--- NOTE | 2021-04-15 10:39 | NUR ---
RADIOLOGY AT BEDSIDE TO CONFIRM CENTRAL LINE PLACEMENT
--- NOTE | 2021-04-15 10:45 | NUR ---
Professor Of Poultry Science staffed with the patient's nurse. The patient to be transferred to the ICU. SW informed the ICU SW.
--- NOTE | 2021-04-15 10:49 | NUR ---
RADIOLOGY CONFIRMED PLACEMENT, IV POTASSIUM STARTED. BLOOD WILL START SOON
--- NOTE | 2021-04-15 11:05 | NUR ---
STARTING FIRST UNIT OF BLOOD PER ORDERS. VSS. PATIENT TOLERTING WELL SO FAR. WILL CONTINUE TO MONITOR. AT BEDSIDE.
--- NOTE | 2021-04-15 12:10 | NUR ---
SUPERPUBIC CAR WITH 600CC OF YELLOW URINE AND SEDIMENT NOTED. INDWELLING CAR HAS NO OUTPUT AT THIS TIME.
--- NOTE | 2021-04-15 13:15 | NUR ---
PICC canceled by ID. Central line placement by surgeon.
--- NOTE | 2021-04-15 14:03 | NUR ---
Follow-up visit; Patient thanked Floriculture Teacher for looking in on him. He states he is not making the progress he had hoped and thanked Floriculture Teacher for keeping him in her prayers.
--- NOTE | 2021-04-15 14:15 | NUR ---
SECOND UNIT OF BLOOD STARTED PER ORDERS. VSS. PATIENT TOLERATING TRANSFUSION WELL SO FAR. WILL MONITOR. AT BEDSIDE.
--- NOTE | 2021-04-15 14:45 | NUR ---
CT AT BEDSIDE, PATIENT DRINKING ORAL CONTRAST
--- NOTE | 2021-04-15 15:45 | NUR ---
PATIENT GOING DOWN FOR CT AND THEN TO ICU. ICU ALREADY CALLED REPORT. AT BEDSIDE WITH PERSONAL BELONGINGS. PATIENT TRANSFERED TO ICU #5.
--- NOTE | 2021-04-15 16:45 | NUR ---
Resting in bed at this time. Alert and oriented and in no distress. Denies any pain or shortness of breath at this time. Assessment completed; will continueu to monitor.
--- NOTE | 2021-04-15 18:42 | NUR ---
Ok by Dr. Paige to re-start previous diet at this time.
[2021-04-15 18:54] LABS: HEMATOCRIT 26.7 % (42.0-52.0); HEMOGLOBIN 8.9 g/dl (13.5-18.0)
--- NOTE | 2021-04-15 20:20 | NUR ---
Assessment complete. Pt is AXO X3, denies having any pain at this time. Pt is sitting up in the bed watching TV at this time and he denies further needs. Call light within reach.
[2021-04-16] VITALS (557 sets, daily range): BP systolic 104–140; BP diastolic 72–99; PULSE 85–112; TEMP 97.7–99.6; O2SAT 57–100
[2021-04-16 03:34] LABS: MEAN CELL VOLUME 93 fl (80.0-100.0); MEAN CORPUSCULAR HGB CONC 33 g/dl (33.0-37.0); MEAN PLATELET VOLUME 10.8 fl (7.4-10.4); PLATELET COUNT 189 K/mm3 (130-400); RED BLOOD COUNT 2.91 M/mm3 (4.20-5.60); REDCELL DISTRIBUTION WIDTH-CV 17.9 % (11.5-14.5)
[2021-04-16 03:40] LABS: HEMATOCRIT 27.1 % (42.0-52.0); MEAN CORPUSCULAR HEMOGLOBIN 31 pg (27.0-31.0)
[2021-04-16 03:45] LABS: CALCIUM 8.5 mg/dL (8.4-10.2); CREATININE, serum 2.27 (0.66-1.25); POTASSIUM 3.7 mmol/L (3.4-5.0)
[2021-04-16 03:51] LABS: ANISOCYTOSIS 1+; BAND 10 % (0-10); HYPOCHROMIA 1+; LYMPHOCYTE 11 % (20.0-51.0); NEUTROPHILS 73 % (42.0-75.2); NUCLEATED RED BLOOD CELL 2 (0-6); PLATELET ESTIMATE NORMAL (NORMAL); SCHISTOCYTES 1+
--- NOTE | 2021-04-16 07:19 | NUR ---
Bedside shift report given to GOKUL Green.
--- NOTE | 2021-04-16 07:59 | NUR ---
PT is awake sitting in his chair this am. PT is upset that his breakast is not what he ordered but agrees to eat in anyway. PT denies wanting a new tray. PT states he needs to have a BM. BM is brown liquid. PT wants more immodium. Medication given per eMAR with morning medications. PT's heart monitoring showing Atrial fibrilation. PT denies pain or shortness of breath, though pateint appears to be breathing with more effort afer using the bathroom and walking back to chair, SBA. PT is currently sitting in chair enjoying breakfast with call light in reach.
--- NOTE | 2021-04-16 10:30 | NUR ---
SW met with the patient to review d/c plan. The patient reports that he is ready to return home with his . He had no concerns about returning home upon discharge. SW to follow as needed.
[2021-04-17] VITALS (423 sets, daily range): BP systolic 107–123; BP diastolic 66–90; PULSE 76–113; TEMP 97.6–99.7; O2SAT 77–100
[2021-04-17 06:59] LABS: MEAN CELL VOLUME 95 fl (80.0-100.0); MEAN CORPUSCULAR HGB CONC 34 g/dl (33.0-37.0); MEAN PLATELET VOLUME 11.7 fl (7.4-10.4); PLATELET COUNT 182 K/mm3 (130-400); RED BLOOD COUNT 2.77 M/mm3 (4.20-5.60); REDCELL DISTRIBUTION WIDTH-CV 17.7 % (11.5-14.5)
[2021-04-17 07:02] LABS: HEMATOCRIT 26.3 % (42.0-52.0); HEMOGLOBIN 8.8 g/dl (13.5-18.0); MEAN CORPUSCULAR HEMOGLOBIN 32 pg (27.0-31.0)
[2021-04-17 07:15] LABS: CALCIUM 8.3 mg/dL (8.4-10.2); CREATININE, serum 1.83 (0.66-1.25); POTASSIUM 3.8 mmol/L (3.4-5.0)
--- NOTE | 2021-04-17 07:32 | NUR ---
Bedside shift report given to GOKUL Green.
[2021-04-17 07:37] LABS: ANISOCYTOSIS 1+; BASOPHIL 2 % (0-2); EOSINOPHIL 2 % (0-4); LYMPHOCYTE 11 % (20.0-51.0); METAMYELOCYTE 4 % (0-0); NEUTROPHILS 70 % (42.0-75.2); PLATELET ESTIMATE NORMAL (NORMAL)
--- NOTE | 2021-04-17 12:05 | NUR ---
Patient to room 342 by wheelchair from the ICU. VSS. IV CDI. Nurse oriented patient to location, room and call light. Patient A&Ox4. Independent in room. Denies pain and discomfort. Call light within reach.
--- NOTE | 2021-04-17 17:32 | NUR ---
Patient sitting up in bed, at the bedside. Denies pain and discomfort. IV CDI. Foleyx2 CDI. Patient independent in the bedroom. Nurse discussed plan of care with the patient and . No further needs expressed from the patient. Call light within reach
--- NOTE | 2021-04-17 21:00 | NUR ---
PT RESTING IN BED. UP INDEPENDENTLY. CHANGE ABD & S/P CATH. IRRIGATED CATH 3CC NS WITH IMMEDIATE RETURN. NOTED DISTAL END OF MIDLINE INCISION HAS YELLOW SEROUS DRAINGE AND SMALL OPENING. MIDLINE NOTED TO BE RED TO MEDIAL ASPECT. JAMEEL INTACT. PT DENIES PAIN. S/P CATH SITE INTACT WITH SUTURES WITH NOTED YELLOWISH EXUDATE. ALL AREAS CLEANED AND NEW GAUZE SECURED WITH TAPE. OME SCABS ON ABD FROM TAPE LUI NOTED BUT HEALING. IGLESIA CARE GIVEN. SCROTUM STILL SWOLLEN BUT IMPROVING. PT CLAY WELL.
[2021-04-18 04:21] VITALS: BP 108/67; PULSE 69; TEMP 98.1
[2021-04-18 06:03] LABS: MEAN CELL VOLUME 94 fl (80.0-100.0); MEAN CORPUSCULAR HGB CONC 34 g/dl (33.0-37.0); MEAN PLATELET VOLUME 11.7 fl (7.4-10.4); PLATELET COUNT 219 K/mm3 (130-400); RED BLOOD COUNT 2.91 M/mm3 (4.20-5.60); REDCELL DISTRIBUTION WIDTH-CV 17.2 % (11.5-14.5)
[2021-04-18 06:10] LABS: CALCIUM 8.7 mg/dL (8.4-10.2); CREATININE, serum 1.67 (0.66-1.25); POTASSIUM 3.7 mmol/L (3.4-5.0)
[2021-04-18 06:12] LABS: HEMATOCRIT 27.2 % (42.0-52.0); HEMOGLOBIN 9.1 g/dl (13.5-18.0); MEAN CORPUSCULAR HEMOGLOBIN 31 pg (27.0-31.0)
[2021-04-18 07:14] LABS: BASOPHIL 1 % (0-2); EOSINOPHIL 3 % (0-4); LYMPHOCYTE 18 % (20.0-51.0); METAMYELOCYTE 3 % (0-0); NEUTROPHILS 66 % (42.0-75.2); PLATELET ESTIMATE NORMAL (NORMAL)
[2021-04-18 07:15] LABS: ANISOCYTOSIS 1+; HYPOCHROMIA 1+
[2021-04-18 07:37] VITALS: BP 120/81; PULSE 72; TEMP 98.1
--- NOTE | 2021-04-18 09:00 | NUR ---
Patient resting on window seat at this time. Patient is alert and oriented, answers questions appropriately. Urostomy flushed per order, patient tolerated well. Dressing to ABD midline changed. Old dressing was saturated with serous drainage. Applied gauze sterile 4x4s, ABDs, and paper tape. Administered medications per order, patient refused PO potassium and states he would rather take it IV since he has a central line, will amend orders per patient request. Patient denies further needs, reports that he is anxious to go home today, and requests to speak to which ever doctor can send him home. Assured patient that message would be passed on. Call light within reach.
--- NOTE | 2021-04-18 10:03 | NUR ---
Pt voiced concerns about insurance coverage for hospital stay. Informed pt that UR was communicating with insurance and keeping them updated with the progression of the case. I called [facility] insurance to obtain further authorization and am waiting on return call. Pt voiced understanding and all questions were answered.
[2021-04-18 11:07] VITALS: BP 103/87; PULSE 77; TEMP 97.8
[2021-04-18] MEDS ORDERED: PRINCIPEN500 MG PO (12:25)
[2021-04-18] MEDS ORDERED: INVANZ INJ1 G/VIAL IV (12:29)
[2021-04-18] MEDS ORDERED: TOPROL XL 25MG25 MG PO (12:57)
[2021-04-18] MEDS ORDERED: ASPIRIN E.C. 8181 MG PO (12:58)
[2021-04-18] MEDS ORDERED: NEURONTIN100 MG/CAP PO (13:00)
[2021-04-18] MEDS ORDERED: SODIUM BICARBO650 MG PO (13:01)
[2021-04-18] MEDS ORDERED: PROBIOTIC ACID1 EAC3 PO (13:02)
[2021-04-18] MEDS ORDERED: CORDARONE200 MG/TAB PO (13:07)
--- NOTE | 2021-04-18 13:40 | NUR ---
REBECCA is recommending IV Invanz 1 gm daily for 10 days. MIO met with the patient to inform of their recommendation and where he can obtain the IV antibiotics. The patient lives in [place] with his . MIO discussed outpatient IV antibiotics at [facility] or home IV antibiotics. The patient reports that his niece is an RN at the [facility] and he would be interested in doing the IV antibiotics there. MIO contacted and faxed the patient's information to Leela at [facility]. Leela reports that they will need an order and script for the IV antibiotic. MIO contacted and updated the patient's , Heide. She is in agreement to the plan. The clinical team is ready to d/c the patient today. MIO contacted and faxed the patient's d/c orders and the IV Invanz script to Leela at [facility]. Leela reports that they are able to administer the IV Invanz to the patient tomorrow and that she has given the patient's information to their scheduling. She reports scheduling will be reaching out to the patient to set up a time for him to come in tomorrow. She reports that their billing department will work with the patient. MIO contacted and updated the patient's , Heide. Heide reports that scheduling has already reached out to them and that the patient's appointment is at 0900 at [facility] for the IV Invanz. Heide had no other questions for concerns for MIO. MIO updated the patient's RN. No additional needs at this time.
--- NOTE | 2021-04-18 15:58 | NUR ---
Discharge teaching completed with patient and . Discussed flushing urostomy, reviewed procedure and supplies. Discussed dressing change and bathing restrictions, verblized understanding. Escobedo care discussed, bag changes and washing discussed. Questions asked and answered. Patient and verbalized understanding and denied further questions. Patient and instructed to call urology office with questions or concerns, and encouraged them to call or come in to ED if urology is unavailable. Central line removed by charge nurse, post central line removal care discussed. Patient and denied further needs, patient dressed and escorted to ED entrance.
== END 2021-04-18 15:55 | disposition home or self-care (01) | DRG 653 ==
LOC: ICU 04-08 05:20 → INPTSU 04-08 05:20 → SURG 04-08 07:30 → ICU 04-08 16:04 → SURG 04-10 15:00 → ICU 04-15 15:50 → SURG 04-17 12:58
PROVIDERS: Hospitalist; Internal Medicine Nephrology; Physician Assistant; Student in an Organized Health Care Education/Training Program; ADMIT Urology
PROC: 0TRB07Z Replacement of Bladder with Autologous Tissue Substitute, Open Approach (ICD-10-PCS; 2021-04-08)
PROC: 0T1 Urinary System, Bypass (ICD-10-PCS; 2021-04-08)
PROC: 0T9B30Z Drainage of Bladder with Drainage Device, Percutaneous Approach (ICD-10-PCS; 2021-04-08)
PROC: 0VT04ZZ Resection of Prostate, Percutaneous Endoscopic Approach (ICD-10-PCS; 2021-04-08)
PROC: 0TTB4ZZ Resection of Bladder, Percutaneous Endoscopic Approach (ICD-10-PCS; 2021-04-08)
PROC: 07BC0ZX Excision of Pelvis Lymphatic, Open Approach, Diagnostic (ICD-10-PCS; principal; 2021-04-08 07:30)
PROC: 0JQ80ZZ Repair Abdomen Subcutaneous Tissue and Fascia, Open Approach (ICD-10-PCS; 2021-04-12)
PROC: 02HV33Z Insertion of Infusion Device into Superior Vena Cava, Percutaneous Approach (ICD-10-PCS; 2021-04-18)
DX: C67.2 Malignant neoplasm of lateral wall of bladder (principal); A41.50 Gram-negative sepsis, unspecified; N17.9 Acute kidney failure, unspecified; T81.31XA Disruption of external operation (surgical) wound, not elsewhere classified, initial encounter; N39.0 Urinary tract infection, site not specified; K57.92 Diverticulitis of intestine, part unspecified, without perforation or abscess without bleeding; I48.91 Unspecified atrial fibrillation; D64.9 Anemia, unspecified; Z66 Do not resuscitate; Z20.822 Contact with and (suspected) exposure to COVID-19; I10 Essential (primary) hypertension; I08.1 Rheumatic disorders of both mitral and tricuspid valves; J44.9 Chronic obstructive pulmonary disease, unspecified; K21.9 Gastro-esophageal reflux disease without esophagitis; E78.00 Pure hypercholesterolemia, unspecified; G47.33 Obstructive sleep apnea (adult) (pediatric); E83.42 Hypomagnesemia; E87.6 Hypokalemia; F41.9 Anxiety disorder, unspecified; E78.5 Hyperlipidemia, unspecified; R19.7 Diarrhea, unspecified; B95.2 Enterococcus as the cause of diseases classified elsewhere; B96.4 Proteus (mirabilis) (morganii) as the cause of diseases classified elsewhere; F10.10 Alcohol abuse, uncomplicated; F17.210 Nicotine dependence, cigarettes, uncomplicated; Z88.5 Allergy status to narcotic agent
CPT/HCPCS: 99223; 99233-AI; A4314; A9284; C1751; C2617; J0282; J0330; J0690; J0696; J1100; J1644; J1650; J2185; J2250; J2370; J2405; J2704; J3010; J3475; J3480; J7030; J7040; J7060; J7120; P9016

== ENCOUNTER 2021-03-24 15:00 | Outpatient (RCR) | payer OTHER ==
[2021-01-20 08:59] VITALS: BP 131/91; PULSE 90; TEMP 98.2
--- NOTE | 2021-01-20 10:00 | NUR ---
PICC INSERTION COMPLETED BY IV SERVICES, NALINI WRAP ON ARM, INSTRUCTIONS GIVEN BY IV SERVICES, PT WILL RETURN NEXT WEDNESDAY FOR PICC DRESSING CHANGE,
[2021-01-27 15:25] VITALS: BP 122/80; PULSE 98; TEMP 98.2
[2021-01-27 15:45] LABS: HEMATOCRIT 33.7 % (42.0-52.0); HEMOGLOBIN 11.5 g/dl (13.5-18.0); MEAN CELL VOLUME 92 fl (80.0-100.0); MEAN CORPUSCULAR HEMOGLOBIN 32 pg (27.0-31.0); MEAN CORPUSCULAR HGB CONC 34 g/dl (33.0-37.0); MEAN PLATELET VOLUME 10.9 fl (7.4-10.4); PLATELET COUNT 170 K/mm3 (130-400); RED BLOOD COUNT 3.65 M/mm3 (4.20-5.60)
[2021-01-27 16:01] LABS: LYMPHOCYTE 31 % (20.0-51.0); NEUTROPHILS 58 % (42.0-75.2); PLATELET ESTIMATE NORMAL (NORMAL)
[2021-01-27 16:02] LABS: ALANINE AMINOTRANSFERASE 20 U/L (4-49); ALBUMIN 4.1 gm/dL (3.5-5.0); ALKALINE PHOSPHATASE 148 U/L (50-136); ANION GAP 10 mmol/L (7-16); AST,SGOT 21 U/L (15-37); BILIRUBIN,TOTAL < 0.1 mg/dL (0.0-1.0); BLOOD UREA NITROGEN 14 mg/dL (9-20); CALCIUM 8.7 mg/dL (8.4-10.2); CARBON DIOXIDE 26 mmol/L (22-30); CHLORIDE 101 mmol/L (98-107); CREATININE, serum 0.63 (0.66-1.25); GLUCOSE 113 mg/dL (74-106); MAGNESIUM 1.1 mg/dL (1.6-2.3); POTASSIUM 3.9 mmol/L (3.4-5.0); SODIUM 137 mmol/L (137-145); TOTAL PROTEIN 6.9 gm/dL (6.4-8.2)
[2021-02-03 15:05] VITALS: BP 146/84; PULSE 108; TEMP 97.7
[2021-02-03 15:24] LABS: MEAN CELL VOLUME 92 fl (80.0-100.0); MEAN CORPUSCULAR HEMOGLOBIN 32 pg (27.0-31.0); MEAN CORPUSCULAR HGB CONC 34 g/dl (33.0-37.0); PLATELET COUNT 155 K/mm3 (130-400); RED BLOOD COUNT 3.48 M/mm3 (4.20-5.60); REDCELL DISTRIBUTION WIDTH-CV 14.6 % (11.5-14.5)
[2021-02-03 15:26] LABS: HEMATOCRIT 32.1 % (42.0-52.0)
[2021-02-03 15:45] LABS: ALANINE AMINOTRANSFERASE 23 U/L (4-49); ALBUMIN 4.2 gm/dL (3.5-5.0); ALKALINE PHOSPHATASE 132 U/L (50-136); ANION GAP 10 mmol/L (7-16); AST,SGOT 23 U/L (15-37); BILIRUBIN,TOTAL < 0.1 mg/dL (0.0-1.0); BLOOD UREA NITROGEN 16 mg/dL (9-20); CALCIUM 8.6 mg/dL (8.4-10.2); CARBON DIOXIDE 24 mmol/L (22-30); CHLORIDE 104 mmol/L (98-107); CREATININE, serum 0.77 (0.66-1.25); GLUCOSE 114 mg/dL (74-106); LACTATE DEHYDROGENASE 472 U/L (313-618); MAGNESIUM 1.3 mg/dL (1.6-2.3); POTASSIUM 4.1 mmol/L (3.4-5.0); SODIUM 138 mmol/L (137-145); TOTAL PROTEIN 7.2 gm/dL (6.4-8.2)
[2021-02-03 16:14] LABS: BAND 8 % (0-10); EOSINOPHIL 1 % (0-4); LYMPHOCYTE 14 % (20.0-51.0); NEUTROPHILS 75 % (42.0-75.2)
[2021-02-03 16:19] LABS: SCHISTOCYTES 1+
[2021-02-05 08:11] LABS: PATHOLOGY DIFF REVIEW OK
[2021-02-10 15:12] VITALS: BP 124/75; PULSE 114; TEMP 97.9
[2021-02-10 15:19] LABS: HEMOGLOBIN 10.8 g/dl (13.5-18.0); MEAN CELL VOLUME 93 fl (80.0-100.0); MEAN CORPUSCULAR HEMOGLOBIN 33 pg (27.0-31.0); MEAN CORPUSCULAR HGB CONC 35 g/dl (33.0-37.0); MEAN PLATELET VOLUME 11.1 fl (7.4-10.4); PLATELET COUNT 294 K/mm3 (130-400); RED BLOOD COUNT 3.32 M/mm3 (4.20-5.60); REDCELL DISTRIBUTION WIDTH-CV 15.2 % (11.5-14.5)
[2021-02-10 15:24] LABS: ALBUMIN 4.3 gm/dL (3.5-5.0); BILIRUBIN,TOTAL 0.4 mg/dL (0.0-1.0); CREATININE, serum 0.76 (0.66-1.25); MAGNESIUM 1.1 mg/dL (1.6-2.3); POTASSIUM 3.5 mmol/L (3.4-5.0); TOTAL PROTEIN 7.3 gm/dL (6.4-8.2)
[2021-02-10 15:51] LABS: BAND 20 % (0-10); LYMPHOCYTE 5 % (20.0-51.0); NEUTROPHILS 72 % (42.0-75.2)
[2021-02-10 15:53] LABS: STOMATOCYTE 1+
[2021-02-17 15:22] VITALS: BP 119/52; PULSE 97; TEMP 98
[2021-02-17 15:28] LABS: ALBUMIN 4.3 gm/dL (3.5-5.0); BILIRUBIN,TOTAL 0.1 mg/dL (0.0-1.0); CALCIUM 8.5 mg/dL (8.4-10.2); CREATININE, serum 0.72 (0.66-1.25); MAGNESIUM 1.2 mg/dL (1.6-2.3); TOTAL PROTEIN 7.2 gm/dL (6.4-8.2)
[2021-02-17 15:35] LABS: HEMOGLOBIN 10.1 g/dl (13.5-18.0); MEAN CELL VOLUME 92 fl (80.0-100.0); MEAN CORPUSCULAR HEMOGLOBIN 32 pg (27.0-31.0); MEAN CORPUSCULAR HGB CONC 35 g/dl (33.0-37.0); MEAN PLATELET VOLUME 10.9 fl (7.4-10.4); PLATELET COUNT 180 K/mm3 (130-400); RED BLOOD COUNT 3.15 M/mm3 (4.20-5.60); REDCELL DISTRIBUTION WIDTH-CV 15.6 % (11.5-14.5)
[2021-02-17 15:41] LABS: HEMATOCRIT 28.9 % (42.0-52.0)
[2021-02-17 16:22] LABS: BAND 11 % (0-10); LYMPHOCYTE 17 % (20.0-51.0); METAMYELOCYTE 2 % (0-0); NEUTROPHILS 61 % (42.0-75.2)
[2021-02-24 15:09] VITALS: BP 117/70; PULSE 106; TEMP 98.1
[2021-02-24 15:19] LABS: MEAN CELL VOLUME 91 fl (80.0-100.0); MEAN CORPUSCULAR HGB CONC 35 g/dl (33.0-37.0); MEAN PLATELET VOLUME 11.1 fl (7.4-10.4); PLATELET COUNT 232 K/mm3 (130-400); RED BLOOD COUNT 3.04 M/mm3 (4.20-5.60); REDCELL DISTRIBUTION WIDTH-CV 15.9 % (11.5-14.5)
[2021-02-24 15:20] LABS: HEMATOCRIT 27.8 % (42.0-52.0); HEMOGLOBIN 9.8 g/dl (13.5-18.0); MEAN CORPUSCULAR HEMOGLOBIN 32 pg (27.0-31.0)
[2021-02-24 15:31] LABS: ALBUMIN 4.5 gm/dL (3.5-5.0); BILIRUBIN,TOTAL 0.4 mg/dL (0.0-1.0); CALCIUM 8.7 mg/dL (8.4-10.2); CREATININE, serum 0.78 (0.66-1.25); MAGNESIUM 1.1 mg/dL (1.6-2.3); TOTAL PROTEIN 7.3 gm/dL (6.4-8.2)
[2021-02-24 15:34] LABS: LYMPHOCYTE 21 % (20.0-51.0); NEUTROPHILS 77 % (42.0-75.2); PLATELET ESTIMATE NORMAL (NORMAL)
[2021-02-24 15:35] LABS: ANISOCYTOSIS 1+
[2021-03-03 15:12] VITALS: BP 131/72; PULSE 99; TEMP 98.8
[2021-03-03 15:38] LABS: ALBUMIN 4.1 gm/dL (3.5-5.0); BILIRUBIN,TOTAL 0.1 mg/dL (0.0-1.0); CALCIUM 7.9 mg/dL (8.4-10.2); CREATININE, serum 0.87 (0.66-1.25); POTASSIUM 4.2 mmol/L (3.4-5.0); TOTAL PROTEIN 6.9 gm/dL (6.4-8.2)
[2021-03-03 15:43] LABS: MAGNESIUM 0.9 mg/dL (1.6-2.3)
[2021-03-03 15:45] LABS: MEAN CELL VOLUME 91 fl (80.0-100.0); MEAN CORPUSCULAR HGB CONC 36 g/dl (33.0-37.0); MEAN PLATELET VOLUME 11.1 fl (7.4-10.4); PLATELET COUNT 155 K/mm3 (130-400); RED BLOOD COUNT 2.49 M/mm3 (4.20-5.60); REDCELL DISTRIBUTION WIDTH-CV 15.8 % (11.5-14.5)
[2021-03-03 15:52] LABS: HEMATOCRIT 22.6 % (42.0-52.0); HEMOGLOBIN 8.1 g/dl (13.5-18.0); MEAN CORPUSCULAR HEMOGLOBIN 33 pg (27.0-31.0)
[2021-03-03 16:19] LABS: BAND 3 % (0-10); LYMPHOCYTE 24 % (20.0-51.0); NEUTROPHILS 54 % (42.0-75.2)
[2021-03-03 16:20] LABS: ANISOCYTOSIS 1+; PLATELET ESTIMATE NORMAL (NORMAL)
[2021-03-03 16:22] LABS: SPHEROCYTE 1+
[2021-03-04 08:24] LABS: PATHOLOGY DIFF REVIEW OK
[2021-03-10 14:47] VITALS: BP 131/74; PULSE 97; TEMP 98.8
[2021-03-10 15:03] LABS: MEAN CELL VOLUME 95 fl (80.0-100.0); MEAN CORPUSCULAR HGB CONC 34 g/dl (33.0-37.0); MEAN PLATELET VOLUME 10.3 fl (7.4-10.4); PLATELET COUNT 291 K/mm3 (130-400); RED BLOOD COUNT 2.73 M/mm3 (4.20-5.60); REDCELL DISTRIBUTION WIDTH-CV 17.8 % (11.5-14.5)
[2021-03-10 15:06] LABS: HEMOGLOBIN 8.8 g/dl (13.5-18.0); MEAN CORPUSCULAR HEMOGLOBIN 32 pg (27.0-31.0)
[2021-03-10 15:07] LABS: HEMATOCRIT 25.8 % (42.0-52.0)
[2021-03-10 15:14] LABS: ALBUMIN 4.5 gm/dL (3.5-5.0); BILIRUBIN,TOTAL 0.2 mg/dL (0.0-1.0); CALCIUM 9.2 mg/dL (8.4-10.2); CREATININE, serum 0.89 (0.66-1.25); MAGNESIUM 1.3 mg/dL (1.6-2.3); POTASSIUM 4.9 mmol/L (3.4-5.0); TOTAL PROTEIN 7.6 gm/dL (6.4-8.2)
[2021-03-10 16:07] LABS: BAND 6 % (0-10); LYMPHOCYTE 19 % (20.0-51.0); NEUTROPHILS 58 % (42.0-75.2)
[2021-03-17 15:28] LABS: MEAN CELL VOLUME 96 fl (80.0-100.0); MEAN CORPUSCULAR HGB CONC 34 g/dl (33.0-37.0); MEAN PLATELET VOLUME 10.2 fl (7.4-10.4); PLATELET COUNT 270 K/mm3 (130-400); RED BLOOD COUNT 2.81 M/mm3 (4.20-5.60); REDCELL DISTRIBUTION WIDTH-CV 17.5 % (11.5-14.5)
[2021-03-17 15:29] LABS: HEMOGLOBIN 9.3 g/dl (13.5-18.0); MEAN CORPUSCULAR HEMOGLOBIN 33 pg (27.0-31.0)
[2021-03-17 15:34] VITALS: BP 136/65; PULSE 101
[2021-03-17 16:04] LABS: ANISOCYTOSIS 1+; LYMPHOCYTE 31 % (20.0-51.0); NEUTROPHILS 58 % (42.0-75.2)
[~2021-03-24] VITALS: Ht 170.2 cm; Wt 100.4 kg
[2021-03-24 15:07] VITALS: BP 113/70; PULSE 96; TEMP 98.3
[2021-03-24 15:08] LABS: MEAN CELL VOLUME 97 fl (80.0-100.0); MEAN CORPUSCULAR HGB CONC 35 g/dl (33.0-37.0); MEAN PLATELET VOLUME 10.9 fl (7.4-10.4); PLATELET COUNT 211 K/mm3 (130-400); RED BLOOD COUNT 2.91 M/mm3 (4.20-5.60); REDCELL DISTRIBUTION WIDTH-CV 17.1 % (11.5-14.5)
[2021-03-24 15:09] LABS: HEMATOCRIT 28.1 % (42.0-52.0); HEMOGLOBIN 9.7 g/dl (13.5-18.0); MEAN CORPUSCULAR HEMOGLOBIN 33 pg (27.0-31.0)
[2021-03-24 15:14] LABS: ALBUMIN 4.8 gm/dL (3.5-5.0); BILIRUBIN,TOTAL 0.4 mg/dL (0.0-1.0); CALCIUM 9.5 mg/dL (8.4-10.2); CREATININE, serum 0.84 (0.66-1.25); MAGNESIUM 1.6 mg/dL (1.6-2.3); TOTAL PROTEIN 7.8 gm/dL (6.4-8.2)
[2021-03-24 15:28] LABS: ANISOCYTOSIS 2+; BASOPHIL 1 % (0-2); EOSINOPHIL 2 % (0-4); LYMPHOCYTE 29 % (20.0-51.0); NEUTROPHILS 56 % (42.0-75.2); PLATELET ESTIMATE NORMAL (NORMAL)
--- NOTE | 2021-03-24 15:34 | NUR ---
30 minute flat time following PICC removal completed without issue. Dressing remains clean, dry and intact. Pt ambulates out from dept with steady gait.
== END 2021-03-24 15:35 | disposition still patient (30) ==
LOC: EUO 15:00
PROVIDERS: Internal Medicine
DX: C67.2 Malignant neoplasm of lateral wall of bladder (principal)
CPT/HCPCS: C1751

== ENCOUNTER 2021-04-29 09:49 | Observation (INO) | payer OTHER ==
[~2021-04-29] VITALS: Ht 170.2 cm; Wt 85.0 kg
[~2021-04-29 09:49] MED LIST changes: +ASPIRIN E.C. 8181 MG PO; +CORDARONE200 MG/TAB PO; +INVANZ INJ1 G/VIAL IV; +KLOR-CON M1010 MEQ PO; +NEURONTIN100 MG/CAP PO; +PRILOSEC 20MG20 MG PO; +PRINCIPEN500 MG PO; +PROBIOTIC ACID1 EAC3 PO; +SODIUM BICARBO650 MG PO; +TOPROL XL 25MG25 MG PO; +ZESTRIL40 MG PO; +ZYRTEC 10MG10 MG PO
[2021-04-29 10:34] VITALS: BP 118/70; PULSE 68; TEMP 98.2
[2021-04-29 11:47] LABS: BASO # 0.1 (0.0-0.2); EOS # 0.2 (0.0-0.7); EOS % 2.2 % (0-4.0); GRAN # 5.2 (1.4-6.5); HEMATOCRIT 28.3 % (42.0-52.0); HEMOGLOBIN 9.2 g/dl (13.5-18.0); LYMPH # 2.1 (1.2-3.4); LYMPH % 24.1 % (20.0-51.0); MEAN CELL VOLUME 94 fl (80.0-100.0); MEAN CORPUSCULAR HEMOGLOBIN 30 pg (27.0-31.0); MEAN CORPUSCULAR HGB CONC 33 g/dl (33.0-37.0); MEAN PLATELET VOLUME 10.5 fl (7.4-10.4); MONO # 0.9 (0.1-0.6); MONO % 10.3 % (1.7-9.3); PLATELET COUNT 376 K/mm3 (130-400); RED BLOOD COUNT 3.02 M/mm3 (4.20-5.60)
[2021-04-29 11:57] LABS: CALCIUM 9.4 mg/dL (8.4-10.2); CREATININE, serum 1.54 (0.66-1.25); POTASSIUM 4.2 mmol/L (3.4-5.0)
--- NOTE | 2021-04-29 13:05 | NUR ---
Discontinued albarran catheter per orders, patient to attempt to void in 1 hr, will check residual.
--- NOTE | 2021-04-29 14:07 | NUR ---
Patient attempted to void, unable to do so at this time, States he "coughed and urine came out" Patient had a saturated towel with mucus present. No ouput from suprapubic catheter.
[2021-04-29 14:49] VITALS: BP 116/64; PULSE 68; TEMP 98.1
--- NOTE | 2021-04-29 15:05 | NUR ---
Patient voided approximately 15 ml of urine with mucus present, Educated patient on straight cath. Patient was able to straight cath himself 20 ml of urine. Encouraged PO intake
--- NOTE | 2021-04-29 16:05 | NUR ---
Patient states he attempted to void and was able to. States he mainly had mucus present but then accidentally dropped urinal. No residual from suprapubic catheter.
[2021-04-29 17:51] VITALS: BP 114/78; PULSE 66; TEMP 97.7
--- NOTE | 2021-04-29 18:46 | NUR ---
Patient doing well, denies pain. Denies further needs at this time.
[2021-04-29 19:12] VITALS: BP 116/73; PULSE 68; TEMP 97.9
--- NOTE | 2021-04-29 19:30 | NUR ---
PT IN BED, READY TO VOID AND CATH. HAS VOIDED 300CC OF YELLOW URINE AND STRAIGHT CATHS SELF FOR 15CC MORE OF CLOUDY URINE. PT AWARE OF HOURLY VOIDING CHECKS THROUGHOUT THE NIGHT. LEFT UPPER PICC IN PLACE.
[2021-04-29] MEDS ORDERED: PRINIVIL40 MG PO (19:56)
[2021-04-29] MEDS ORDERED: NEXIUM 40MG40 MG PO (19:57)
[2021-04-29] MEDS ORDERED: LASIX 40MG TABL40 MG PO (19:57)
[2021-04-29] MEDS ORDERED: LIPITOR 40MG TA40 MG PO (19:57)
[2021-04-29] MEDS ORDERED: KLOR-CON M1010 MEQ PO (20:46)
--- NOTE | 2021-04-29 21:12 | NUR ---
PATIENT USUALLY USES A PAP DEVICE AT HOME. HE DID NOT BRING IT IN WITH HIM AND THERE ARE NONE AVAILABLE TO GIVE HIM TO USE.
--- NOTE | 2021-04-29 21:20 | NUR ---
REVIEWED PTS MEDS WITH SPOUSE TIKI. CORRECTIONS MADE TO MED REC.
--- NOTE | 2021-04-29 23:03 | NUR ---
HS MEDS INCLUDING IMODIUM FOR LOOSE STOOLS GIVEN. CONTINUES TO HOURLY VOID AND ALTERNATING STRAIGHT CATHING.
[2021-04-29 23:20] VITALS: BP 114/63; PULSE 66; TEMP 97.7
--- NOTE | 2021-04-30 02:00 | NUR ---
PT HAS LOOSE STOOL. DOES VOIDING AND STRAIGHT CATH AT THIS TIME.
--- NOTE | 2021-04-30 03:15 | NUR ---
PT VOIDS 50CC OF MUCUS URINE, NO OUTPUT FROM SUPRAPUBIC. CONTINUES TO HAVE LEAKAGE OF URINE FROM PENIS, HAS A TOWEL IN PLACE TO ABSORB THIS. WEARING OXYGEN AT 2L/NC HE DIDN'T BRING HIS CPAP.
[2021-04-30 03:53] VITALS: BP 113/55; PULSE 66; TEMP 97.8
[2021-04-30 07:19] VITALS: BP 126/69; PULSE 69; TEMP 97.7
--- NOTE | 2021-04-30 10:00 | NUR ---
Discharge education provided to patient. Educated on when to call provider and self catheterization. Patient has demonstrated back ability to self cath throughout the night. PICC line to BIRD, patient states is being managed in [facility], has another dose of antibiotic tomorrow morning. Educated on signs and symptoms of infection. Patient also educated on when to call provider. Patient and spouse verbalized understanding. Denies further needs at this time.
--- NOTE | 2021-04-30 10:13 | NUR ---
Initial visit; Patient thanked Manager Underwriting for looking in on him and offering God's blessings.
--- NOTE | 2021-04-30 10:35 | NUR ---
Patient out by wheelchair with surgical staff and spouse.
== END 2021-04-30 10:35 | disposition home or self-care (01) ==
LOC: SURG 09:49
PROVIDERS: ADMIT Urology
DX: Z90.6 Acquired absence of other parts of urinary tract (principal); Z85.51 Personal history of malignant neoplasm of bladder; Z79.899 Other long term (current) drug therapy; Z79.82 Long term (current) use of aspirin
CPT/HCPCS: G0378; J1335

== ENCOUNTER 2023-01-10 12:43 | Inpatient (IN) | payer OTHER ==
[2023-01-10] VITALS (12 sets, daily range): BP systolic 97–128; BP diastolic 44–86; PULSE 100–131; TEMP 97.6–98.1
[~2023-01-10] VITALS: Ht 167.6 cm; Wt 108.8 kg
[~2023-01-10 12:43] MED LIST changes: +LIPITOR 40MG TA40 MG PO; +NEXIUM 40MG40 MG PO; +PRINIVIL40 MG PO
[2023-01-10 13:55] LABS: MEAN CELL VOLUME 99 fl (80.0-100.0); MEAN CORPUSCULAR HGB CONC 33 g/dl (33.0-37.0); PLATELET COUNT 130 K/mm3 (130-400); RED BLOOD COUNT 1.76 M/mm3 (4.20-5.60); REDCELL DISTRIBUTION WIDTH-CV 17.1 % (11.5-14.5)
[2023-01-10 13:59] LABS: HEMATOCRIT 17.5 % (42.0-52.0); HEMOGLOBIN 5.8 g/dl (13.5-18.0); MEAN CORPUSCULAR HEMOGLOBIN 33 pg (27-31)
[2023-01-10 14:12] LABS: ALBUMIN 2.7 gm/dL (3.5-5.0); BILIRUBIN,TOTAL 0.7 mg/dL (0.2-1.2); CALCIUM 8.8 mg/dL (8.4-10.2); CREATININE, serum 1.68 mg/dL (0.72-1.25); POTASSIUM 3.4 mmol/L (3.5-4.5); TOTAL PROTEIN 6.7 gm/dL (6.2-8.1)
[2023-01-10 14:48] LABS: BAND 11 % (0-10); BASOPHIL 1 % (0-2); LYMPHOCYTE 12 % (20.0-51.0); METAMYELOCYTE 3 % (0-0); NEUTROPHILS 67 % (42.0-75.2); NUCLEATED RED BLOOD CELL 2 (0-6); PLATELET ESTIMATE NORMAL (NORMAL)
[2023-01-10 14:51] LABS: ANISOCYTOSIS 1+; POLYCHROMASIA 1+
[2023-01-10] MEDS ORDERED: TRICOR145 MG PO (16:41)
[2023-01-10] MEDS ORDERED: BACTRIM DS 8001 TAB PO (16:41)
[2023-01-10] MEDS ORDERED: XANAX 0.5MG0.5 MG PO (16:42)
[2023-01-10] MEDS ORDERED: NORCO 325 MG-51 TAB PO (16:42)
[2023-01-10] MEDS ORDERED: NEURONTIN300 MG/CAP PO (16:43)
[2023-01-10] MEDS ORDERED: SODIUM BICARBO650 MG PO (16:44)
[2023-01-10] MEDS ORDERED: MAG-OX 400400 MG/TAB PO (16:46)
--- NOTE | 2023-01-10 17:45 | NUR ---
Pt. arrived to the floor. Pt. is A&OX3. Pt. denies pain. Wound cx collected. Pt. denies needs.
--- NOTE | 2023-01-10 20:00 | NUR ---
ADMISSION QUESTIONS COMPLETED. PT IN BED, HAS BLOOD INFUSING TO RAC SITE, NO REDNESS OR SWELLING. HAS IVF BOLUS INFUSING TO LAC SITE WITHOUT PROBLEM. PT HAS OXYGEN ON AT 1L/NC. IS SHORT OF BREATH. PT HAS LUNG CANCER AND HAS HAD RECENT RADIATION TO RT CHEST AND CHEMO. BROUGHT HIS OWN CPAP, IS AT BEDSIDE. REPORTS BURNING TO RT AXILLA, HAS WOUND THERE, HAS MINIMAL SEROUS DRAINAGE NOTED, PLACED ABD PAD OVER SITE. PT IS WEARING DEPENDS D/T URINE LEAKAGE.
--- NOTE | 2023-01-10 20:18 | NUR ---
PT MEDICATED WITH POTASSIUM REPLACEMENT, ES TYLENOL AND OXYCODONE AT THIS TIME. ASSISTED TO BATHROOM, VOIDS AND CHANGES DEPENDS D/T INCONTINENCE OF URINE. INFORMED PT OF NEED FOR STOOL FOR OB, PT REPORTS HAVING A STOOL TODAY ALREADY. IVF BOLUS COMPLETE.
--- NOTE | 2023-01-10 20:30 | NUR ---
[facility] NOTIFIED OF HGB=6.0.
[2023-01-10 20:42] LABS: HEMATOCRIT 18.3 % (42.0-52.0)
--- NOTE | 2023-01-10 22:35 | NUR ---
PT HR 110'S-130. DYSPNEIC WITH EXERTION. OXYGEN AT 2L/NC. WILL GET ANOTHER UNIT OF BLOOD D/T HGB=6.0. MEDICATED WITH REMAINING HS MEDS AND LAST DOSE OF ORAL POTASSIUM, ALSO TOOK XANAX FOR SLEEP.
--- NOTE | 2023-01-10 22:53 | NUR ---
SECOND UNIT OF PRBC'S CONNECTED AND INFUSING TO [facility] SITE WITHOUT PROBLEM.
[2023-01-11] VITALS (21 sets, daily range): BP systolic 102–144; BP diastolic 49–82; PULSE 49–109; TEMP 97.5–99.6
--- NOTE | 2023-01-11 01:15 | NUR ---
BLOOD COMPLETE, WILL GET RECHECK H&H AT 0230. PT HR 90'S-100'S. PT RESTING WITH OXYGEN AT 2L/NC. DID NOT WANT CPAP AT THIS TIME.
[2023-01-11 02:41] LABS: HEMATOCRIT 20.7 % (42.0-52.0); HEMOGLOBIN 6.9 g/dl (13.5-18.0)
--- NOTE | 2023-01-11 02:43 | NUR ---
twilaied Rosina OLVREAP of pts HGB=6.9.
--- NOTE | 2023-01-11 05:04 | NUR ---
ES TYLENOL GIVEN WITH SCHEDULED AM MED FOR HEADACHE.
--- NOTE | 2023-01-11 05:19 | NUR ---
57 yo male with a history of metastatic lung cancer on chemotherapy/radiation is admitted for sepsis likely secondary to skin/soft tissue source (R axillary cellulitis that has failed outpatient therapy.) ht 167.6 cm wt 108.8 kg (adj wt 81.8 kg) SCr 1.68 with estimated CrCl ~45 ml/min Plan: Patient may not follow population based kinetics secondary to body habitus (BMI 38.5 kg/m2). Patient received an initial loading dose of vancomycin 2000 mg x1 in the ED (18.4 mg/kg); will follow with a maintenance regimen of vancomycin 1500 mg q24h to target a goal trough of 10-15 mcg/ml. Will follow patient's renal function, micro data, and vancomycin levels as indicated to assess for any necessary changes to regimen. Thank you for this dosing consult.
--- NOTE | 2023-01-11 05:42 | NUR ---
THIRD UNIT OF BLOOD INFUSING TO RAC SITE AT THIS TIME WITHOUT REDNESS OR SWELLING.
[2023-01-11 06:52] LABS: MEAN CELL VOLUME 95 fl (80.0-100.0); MEAN CORPUSCULAR HGB CONC 34 g/dl (33.0-37.0); PLATELET COUNT 130 K/mm3 (130-400); REDCELL DISTRIBUTION WIDTH-CV 18.8 % (11.5-14.5)
[2023-01-11 06:53] LABS: HEMATOCRIT 20.8 % (42.0-52.0); MEAN CORPUSCULAR HEMOGLOBIN 32 pg (27-31)
[2023-01-11 07:01] LABS: ALBUMIN 2.5 gm/dL (3.5-5.0); BILIRUBIN,TOTAL 0.7 mg/dL (0.2-1.2); C-REACTIVE PROTEIN 14.04 mg/dL (0.00-0.50); CALCIUM 8.4 mg/dL (8.4-10.2); CREATININE, serum 1.32 mg/dL (0.72-1.25); MAGNESIUM 1.6 mg/dL (1.6-2.6); POTASSIUM 4.2 mmol/L (3.5-4.5); TOTAL PROTEIN 6.1 gm/dL (6.2-8.1)
[2023-01-11 07:21] LABS: INR 1.1 (0.8-3.0)
[2023-01-11 08:10] LABS: ANISOCYTOSIS 2+; BAND 16 % (0-10); BASOPHIL 1 % (0-2); LYMPHOCYTE 7 % (20.0-51.0); METAMYELOCYTE 2 % (0-0); NEUTROPHILS 60 % (42.0-75.2); NUCLEATED RED BLOOD CELL 3 (0-6); PLATELET ESTIMATE NORMAL (NORMAL)
--- NOTE | 2023-01-11 10:11 | NUR ---
Leather Finisher met with patient to discuss discharge planning. Patient lives in [place] with his , Heide (ph#[phone]) who is at bedside. Patient sees Dr. Medrano for primary care and obtains medications from [facility] with no difficulties. Patient uses a CPAP at home and no other DME. Patient is independent with ADLS and plans to return home at time of discharge. Patient stated his , Heide is DPOA-HC. Discharge Plan: Home
[2023-01-11 10:17] LABS: HEMATOCRIT 23.3 % (42.0-52.0); HEMOGLOBIN 7.9 g/dl (13.5-18.0)
--- NOTE | 2023-01-11 12:03 | NUR ---
PT TO SURGERY WITH ARIANE AT THIS TIME.
--- NOTE | 2023-01-11 15:19 | NUR ---
PT TO ROOM 348 PER BED WITH REPORT FROM YOUSIF HODGSON PACU @5474. PT IS A/O X4, IV TO RAC, IV ABX RUNNING PER ORDERS. DRESSING TO RIGHT AXILLA CDI WITH GAUZE OVER INCISION. LEFT MESSAGE WITH IV SERVICES.
[2023-01-11 16:25] LABS: HEMATOCRIT 23.4 % (42.0-52.0); HEMOGLOBIN 7.7 g/dl (13.5-18.0)
--- NOTE | 2023-01-11 23:00 | NUR ---
SHIFT REPORT FROM KEYANA HODGSON. PATIENT IN BED ON ROOM ENTRY. ALERT AND ORIENTED. C/O GENERALIZED PAIN BUT PRN TOM WAS GIVEN AT SHIFT CHANGE. HS MEDS PER EMAR. R ARMPIT DRESSING WITH SOME DRAINAGE NOTED. DR. DIAZ IN TO SEE PATIENT, ORDER TO RESTART ELIQUIS AND START ON AMIODARONE. DENIES ADDITIONAL NEEDS. CALL LIGHT IN REACH.
[2023-01-12 04:06] VITALS: BP 150/80; PULSE 101; TEMP 98.7
[2023-01-12 06:43] LABS: MEAN CELL VOLUME 95 fl (80.0-100.0); MEAN CORPUSCULAR HGB CONC 34 g/dl (33.0-37.0); MEAN PLATELET VOLUME 11.1 fl (7.4-10.4); PLATELET COUNT 140 K/mm3 (130-400); RED BLOOD COUNT 2.58 M/mm3 (4.20-5.60)
[2023-01-12 06:45] LABS: HEMATOCRIT 24.5 % (42.0-52.0); HEMOGLOBIN 8.2 g/dl (13.5-18.0); INR 1.2 (0.8-3.0); MEAN CORPUSCULAR HEMOGLOBIN 32 pg (27-31)
[2023-01-12 07:03] LABS: ALBUMIN 2.5 gm/dL (3.5-5.0); BILIRUBIN,TOTAL 0.6 mg/dL (0.2-1.2); C-REACTIVE PROTEIN 14.26 mg/dL (0.00-0.50); CREATININE, serum 1.18 mg/dL (0.72-1.25); POTASSIUM 4.9 mmol/L (3.5-4.5); TOTAL PROTEIN 6.3 gm/dL (6.2-8.1)
[2023-01-12 07:42] LABS: BAND 6 % (0-10); LYMPHOCYTE 10 % (20.0-51.0); NEUTROPHILS 72 % (42.0-75.2); PLATELET ESTIMATE NORMAL (NORMAL)
[2023-01-12 07:43] LABS: ANISOCYTOSIS 2+; POLYCHROMASIA 1+
[2023-01-12 08:44] VITALS: BP 127/84; PULSE 87; TEMP 98.2
--- NOTE | 2023-01-12 09:31 | NUR ---
Initial visit; Patient and his thanked Tower Truck Driver for looking in on him and offering God's blessings and to keep him in her prayers. Tower Truck Driver will follow up while patient is here.
--- NOTE | 2023-01-12 09:41 | NUR ---
PLAN ON CARDIOVERSION TOMMORROW AROUND 11:00. AM MEDS GIVEN ORDERED. [facility] WORKING WITH PORT AT THIS TIME. SPOKE WITH DR. MAGDALENO AND HE SAID THAT IF [facility] COULD GET THE PORT TO FLUSH THAT IT COULD BE USED.
--- NOTE | 2023-01-12 11:07 | NUR ---
Port accessed with sterile technique, dressed with sterile dressing, and labeled, 1.0 in miramontes needled utlized. Port flushes well, however there is no blood return. Multiple attempts made for blood return, however there was continued unsucess. Pt reports that last time port was used there was difficulty with blood return as well, however Cathflo was utilized and blood return was eventually obtained. Relayed this information to patients primary RN. Port left accesses at this time, dressing CDI.
--- NOTE | 2023-01-12 11:27 | NUR ---
ATTEMPTED TO GET BLOOD RETURN FROM PORT AFTER USING CATHFLO WITH NO RESULTS. WILL WAIT ANOTHER 30 MIN AND RETRY.
--- NOTE | 2023-01-12 11:29 | NUR ---
NOTIFIED [facility] OF RESULTS OF CATHFLO. SHE WILL COME SEE PT IN 30 MIN AND WE WILL ATTEMPT TO GET BLOOD RETURN AGAIN.
[2023-01-12 12:00] VITALS: BP 114/62; PULSE 88; TEMP 98
[2023-01-12 16:06] VITALS: BP 117/63; PULSE 94; TEMP 98
[2023-01-12 19:43] VITALS: BP 148/76; PULSE 87; TEMP 98.1
[2023-01-12 23:07] VITALS: BP 168/93; PULSE 102; TEMP 97.2
--- NOTE | 2023-01-12 23:43 | NUR ---
SHIFT REPORT FROM KEYANA HODGSON. PATIENT IN BED ON ROOM ENTRY. ALERT AND ORIENTED. HS MEDS PER EMAR. WET TO DRY DRESSING CHANGE TO AXILLARY WOUND, WOUND IS 6cm X 2.5 cm AND ABOUT 1 cm DEEP. PACKED WITH X1 WET GAUZE AND COVERED WITH ABD PAD AND FOAM TAPE. MINIMAL DRAINAGE WAS NOTED ON OLD DRESSING. L CHEST PORT PATENT AND FLUSHES. IV ABX INFUSING CURRENTLY. DENIES ADDITIONAL NEEDS. CPAP IN PLACE FOR HS. CALL LIGHT IN REACH.
[2023-01-13] VITALS (13 sets, daily range): BP systolic 105–164; BP diastolic 54–93; PULSE 83–108; TEMP 97.2–98.7
--- NOTE | 2023-01-13 04:43 | NUR ---
299- NOTIFIED BY TELE THAT PATIENTS HR HAD BEEN 140s FOR 10-15 MINUTES. VSS. PULSE IRREGULAR ON PALPITATION. NOTIFIED ZAIRA AGUILA, ORDER FOR EKG. EKG RESULTED AFIB RVR 130s. 311- NOTIFIED ZAIRA AGUILA OF EKG RESULTS. ORDER FOR CARDIAZEM BOLUS AND CARDIAZEM GTT. BOLUS AND GTT INITIATED. BP STABLE 120s/70s. PATIENT DENIES ADDITIONAL NEEDS. CALL LIGHT IN REACH.
--- NOTE | 2023-01-13 05:21 | NUR ---
TELE AFIB 120s-140s, NOTIFIED ZAIRA AGUILA. ORDER TO INCREASE CARDIAZEM GTT TO 10 MG/HR. BP STABLE 120s/70s AT THIS TIME.
[2023-01-13 06:40] LABS: MEAN CELL VOLUME 95 fl (80.0-100.0); MEAN CORPUSCULAR HGB CONC 33 g/dl (33.0-37.0); MEAN PLATELET VOLUME 10.8 fl (7.4-10.4); PLATELET COUNT 164 K/mm3 (130-400); RED BLOOD COUNT 2.72 M/mm3 (4.20-5.60); REDCELL DISTRIBUTION WIDTH-CV 18.9 % (11.5-14.5)
[2023-01-13 06:41] LABS: HEMATOCRIT 25.7 % (42.0-52.0); HEMOGLOBIN 8.4 g/dl (13.5-18.0); MEAN CORPUSCULAR HEMOGLOBIN 31 pg (27-31)
[2023-01-13 07:04] LABS: ALBUMIN 2.6 gm/dL (3.5-5.0); BILIRUBIN,TOTAL 0.7 mg/dL (0.2-1.2); CALCIUM 9.2 mg/dL (8.4-10.2); CREATININE, serum 1.3 mg/dL (0.72-1.25); POTASSIUM 4.7 mmol/L (3.5-4.5); TOTAL PROTEIN 6.3 gm/dL (6.2-8.1)
[2023-01-13 07:06] LABS: INR 1.3 (0.8-3.0); PROTHROMBIN TIME 14.7 SECONDS (9.7-12.8)
[2023-01-13 07:13] LABS: ANISOCYTOSIS 1+; BAND 6 % (0-10); HYPOCHROMIA 1+; LYMPHOCYTE 12 % (20.0-51.0); NEUTROPHILS 68 % (42.0-75.2); PLATELET ESTIMATE NORMAL (NORMAL)
--- NOTE | 2023-01-13 07:45 | NUR ---
Pt. sitting up in bed. Pt. is a&OX3, assessment complete, IV to lt. ac patent. Port to lt. chest patent. Cardizem GTT infusing per orders. Dr. Abdul in to change dressing to rt. Axilla. One 4X4, 1 abd and foam tape removed. Dr. Abdul placed Aquacel Ag, folded abd and tegaderm. Pt. reports pain at 5 on pain scale, gave pain meds. Pt. denies further needs, call light within reach.
--- NOTE | 2023-01-14 03:52 | NUR ---
SHIFT REPORT FROM IRENE HODGSON. PATIENT IN BED ON ROOM ENTRY. HS MEDS PER EMAR. DENIES PAIN CONTROL NEEDS. R AXILLA DRESSING CDI. L PORT PATENT AND FLUSHES. CPAP IN PLACE. DENIES ADDITIONAL NEEDS. CALL LIGHT IN REACH.
[2023-01-14 04:19] VITALS: BP 131/83; PULSE 90; TEMP 97.5
[2023-01-14 07:01] LABS: MEAN CELL VOLUME 97 fl (80.0-100.0); MEAN CORPUSCULAR HGB CONC 32 g/dl (33.0-37.0); MEAN PLATELET VOLUME 10.8 fl (7.4-10.4); PLATELET COUNT 139 K/mm3 (130-400); RED BLOOD COUNT 2.43 M/mm3 (4.20-5.60); REDCELL DISTRIBUTION WIDTH-CV 18.2 % (11.5-14.5)
[2023-01-14 07:08] LABS: HEMATOCRIT 23.5 % (42.0-52.0); HEMOGLOBIN 7.5 g/dl (13.5-18.0); MEAN CORPUSCULAR HEMOGLOBIN 31 pg (27-31)
[2023-01-14 07:10] LABS: CALCIUM 8.8 mg/dL (8.4-10.2); CREATININE, serum 1.11 mg/dL (0.72-1.25); MAGNESIUM 1.4 mg/dL (1.6-2.6); POTASSIUM 4.3 mmol/L (3.5-4.5)
[2023-01-14 07:30] VITALS: BP 153/105; PULSE 110; TEMP 97.5
--- NOTE | 2023-01-14 08:00 | NUR ---
PER PATIENT HIS DRESSING " FELL OUT" PATIENTS WOUND REPACKED AND DRESSED. PATIENT DENEIS ANY NEEDS, COMPLAINTS OR PAIN AT THIS TIME. PATIENT IS AWAKE AND ALERT, RESTING IN BED. CALL LIGHT WITH IN REACH.
[2023-01-14 08:34] LABS: BAND 13 % (0-10); EOSINOPHIL 2 % (0-4); LYMPHOCYTE 27 % (20.0-51.0); METAMYELOCYTE 4 % (0-0); NEUTROPHILS 49 % (42.0-75.2)
[2023-01-14 08:35] LABS: ANISOCYTOSIS 1+; PLATELET ESTIMATE NORMAL (NORMAL)
[2023-01-14 11:29] VITALS: BP 113/81; TEMP 97.9
[2023-01-14 15:42] VITALS: BP 122/69; PULSE 109; TEMP 97.9
--- NOTE | 2023-01-14 17:00 | NUR ---
PATIENT AWAKE AND ALERT, RESTING I BED. NO NEEDS OR COMPLAINTS AT THIS TIME. CALL LIGHT WITH IN REACH. PATIENT HAD 5 LOOSE BOWEL MOVEMENTS THIS SHIFT.
[2023-01-14 20:06] VITALS: BP 133/72; PULSE 92; TEMP 97.7
--- NOTE | 2023-01-14 22:20 | NUR ---
Patient A/Ox3, head to toe assessment done, see shift assessment, denies pain at this time, dressing to right axilla clean, dry and intact, denies further needs, call light and personal items within reach, will continue to monitor.
[2023-01-15 00:03] VITALS: BP 130/87; PULSE 96; TEMP 98.2
[2023-01-15 04:32] VITALS: BP 115/69; PULSE 84; TEMP 97.5
[2023-01-15 04:37] VITALS: BP 116/70
[2023-01-15 07:34] VITALS: BP 123/70; PULSE 86; TEMP 97.8
--- NOTE | 2023-01-15 08:00 | NUR ---
PATIENT AWAKE AND ALERT. NO NEEDS OR COMPLAINTS AT THIS TIME. PATIENTS AT BEDSIDE. CALL LIGHT WITH IN REACH.
[2023-01-15] MEDS ORDERED: CEPHALEXIN500 M1 PO (08:22)
--- NOTE | 2023-01-15 08:30 | NUR ---
SPOKE WITH JUDY IN PT. PATIENT NEEDS EVAL FOR DISCHARGE, CALL ME WHEN FINISHED.
--- NOTE | 2023-01-15 11:22 | NUR ---
Milling Machine Operator Gear met with Patient to discuss Home Health options and referral for discharge. PAtient requested a referral for [facility]. REferal was sent. [facility] Accepted PAtient. PAtient informed SW that he will contact and schedule first appointment.
--- NOTE | 2023-01-15 12:00 | NUR ---
PATIENTS PORT DEACCESSED, IV AND TELE REMOVED. PATIENT GIVEN DISCHARGE INSTRUCTIONS AND EDUCATION, WOUND CARE REVIEWED WITH PATIENT.
--- NOTE | 2023-01-15 12:15 | NUR ---
PATIENT LEFT IN STABLE CONDITION.
--- NOTE | 2023-01-15 16:10 | NUR ---
[employer] faxed corrected wound care orders as well as note from surgeon for instructions on wound care to Katie at [facility].
== END 2023-01-15 12:15 | disposition home or self-care (01) | DRG 854 ==
LOC: COL.ER 12:43 → SURG 14:51
PROVIDERS: Internal Medicine; Physician Assistant; Surgery; ADMIT Internal Medicine
PROC: 30233N1 Transfusion of Nonautologous Red Blood Cells into Peripheral Vein, Percutaneous Approach (ICD-10-PCS; 2023-01-10)
PROC: 0JBD0ZZ Excision of Right Upper Arm Subcutaneous Tissue and Fascia, Open Approach (ICD-10-PCS; principal; 2023-01-11 12:30)
DX: A41.9 Sepsis, unspecified organism (principal); A08.11 Acute gastroenteropathy due to Norwalk agent; L03.111 Cellulitis of right axilla; E87.20 Acidosis, unspecified; T82.594A Other mechanical complication of infusion catheter, initial encounter; C78.01 Secondary malignant neoplasm of right lung; D84.9 Immunodeficiency, unspecified; R65.20 Severe sepsis without septic shock; Z66 Do not resuscitate; I48.0 Paroxysmal atrial fibrillation; B95.61 Methicillin susceptible Staphylococcus aureus infection as the cause of diseases classified elsewhere; M79.89 Other specified soft tissue disorders; I95.9 Hypotension, unspecified; D64.81 Anemia due to antineoplastic chemotherapy; T45.1X5A Adverse effect of antineoplastic and immunosuppressive drugs, initial encounter; E83.42 Hypomagnesemia; I12.9 Hypertensive chronic kidney disease with stage 1 through stage 4 chronic kidney disease, or unspecified chronic kidney disease; N18.30 Chronic kidney disease, stage 3 unspecified; K21.9 Gastro-esophageal reflux disease without esophagitis; E78.5 Hyperlipidemia, unspecified; J44.9 Chronic obstructive pulmonary disease, unspecified; E87.6 Hypokalemia; F10.10 Alcohol abuse, uncomplicated; G47.33 Obstructive sleep apnea (adult) (pediatric); Z79.82 Long term (current) use of aspirin; Z85.51 Personal history of malignant neoplasm of bladder; Z90.49 Acquired absence of other specified parts of digestive tract; Z88.6 Allergy status to analgesic agent; Z91.048 Other nonmedicinal substance allergy status; Z23 Encounter for immunization
CPT/HCPCS: J0330; J0690; J1100; J1644; J2370; J2405; J2543; J2704; J2997; J3010; J3370; J3475; J7030; J7040; J7050; J7120; P9016; Q9967

== ENCOUNTER → 2023-01-21 | Outpatient (CLI) | payer OTHER ==
[~2023-01-21] MED LIST changes: +BACTRIM DS 8001 TAB PO; +CEPHALEXIN500 M1 PO; +MAG-OX 400400 MG/TAB PO; +NEURONTIN300 MG/CAP PO; +NORCO 325 MG-51 TAB PO; +TRICOR145 MG PO; +XANAX 0.5MG0.5 MG PO
== END ==
LOC: COL.RAD 10:30
DX: C34.90 Malignant neoplasm of unspecified part of unspecified bronchus or lung (principal); R91.8 Other nonspecific abnormal finding of lung field; K80.21 Calculus of gallbladder without cholecystitis with obstruction

== ENCOUNTER → 2023-01-21 | Outpatient (CLI) | payer OTHER | LOC: COL.RAD 10:31 | DX: K82.0 Obstruction of gallbladder (principal); M89.8X8 Other specified disorders of bone, other site; C34.11 Malignant neoplasm of upper lobe, right bronchus or lung; R59.9 Enlarged lymph nodes, unspecified; R91.8 Other nonspecific abnormal finding of lung field | CPT/HCPCS: Q9967 ==